=== PATIENT | male | born 1945 | race Caucasian/White ===

== ENCOUNTER 2017-12-17 12:11 | Observation (INO) | payer MEDICARE ==
[2017-12-17] MEDS ORDERED: Nitroglycerin 2% Ointment 1 INCH/1 GM Packet ONE (12:42)
[2017-12-17 12:54] LABS: #Eosinphils 0.1 thou/uL (0.0-0.7); #Lymphocytes 1.6 thou/uL (1.20-3.40); #Monocytes 0.4 thou/uL (0.11-0.59); %Basophils 0.4 % (0.0-1.0); %Eosinophils 1.6 % (0.0-10.0); %Lymphocytes 25.8 % (21.0-51.0); %Monocytes 6.7 % (0.0-10.0); %Neutrophils 65.6 % (42.0-75.0); Hemoglobin 13.1 g/dL (14.0-18.0); Mean Corpuscular HGB CONC 33.6 g/dL (32.0-36.0); Mean Corpuscular Hemoglobin 31.9 pg (27.0-31.0); Mean Corpuscular Volume 94.9 fl (80.0-94.0); Mean Platelet Volume 5.7 fL (7.4-10.4); Platelet Count 199 thou/uL (130-400); RBC Distribution Width 11.4 % (11.5-14.5); Red Blood Cell (RBC) Count 4.12 mill/uL (4.70-6.10); White Blood Cell (WBC) Count 6.1 thou/uL (4.8-10.8)
--- NOTE | 2017-12-17 13:02 | RAD ---
PORTABLE CHEST: History: Dizziness, chest pain. Comparison: 03-14-16 FINDINGS: Lungs are well aerated and clear. No infiltrate. Vascular markings are normal. Heart and mediastinum are unremarkable. IMPRESSION: No acute abnormality. POS: [facility]
[2017-12-17 13:15] LABS: CKMB 0.5 ng/mL (0-6.6); Troponin I Less than 0.010 ng/mL (< 0.028)
[2017-12-17 13:22] LABS: ALT (SGPT) 11 U/L (8-55); AST (SGOT) 13 U/L (5-34); Alkaline Phosphatase 74 U/L (40-150); Anion Gap 13 mmol/L (10-20); BUN (Urea Nitrogen) 23 mg/dL (8.4-25.7); Bilirubin, Total 0.8 mg/dL (0.2-1.2); CK (CPK) 59 U/L (30-200); Calc. Creatinine Clearance 0 mL/min (70-130); Calcium 9.3 mg/dL (7.8-10.44); Carbon Dioxide 34 mmol/L (23-31); Chloride 93 mmol/L (98-107); Estimated GFR-MDRD 59; Globulin 2.6 g/dL (2.4-3.5); Glucose 131 mg/dL (83-110); Lipase 16 U/L (8-78); Potassium 3.4 mmol/L (3.5-5.1); Protein, Total 6.6 g/dL (5.8-8.1); Sodium 137 mmol/L (136-145)
[2017-12-17] MEDS ORDERED: Morphine 4 MG/ML Carpuject ONE (14:27)
[2017-12-17] MEDS ORDERED: Nitroglycerin 0.4 MG TAB (25 Tab Bottle) SL PRN (16:07)
[2017-12-17] MEDS ORDERED: Acetaminophen 650 MG/20.3 ML UDCUP PO PRN (16:07)
[2017-12-17] MEDS ORDERED: Ondansetron ODT 4 MG TAB PO PRN (16:07)
[2017-12-17] MEDS ORDERED: Calcium Carbonate 500 MG ChewTAB PO PRN (16:07)
[2017-12-17] MEDS ORDERED: Guaifenesin DM 100-10/5 ML UDCUP PO PRN (16:07)
[2017-12-17] MEDS ORDERED: Lidocaine 2% Viscous Solution 20 ML, Aluminum & Magnesium Hydroxide 30 ML, Donnatal Eli... SSW SCH (16:15)
[2017-12-17 16:41] VITALS: BMI 21.4
[2017-12-17 17:00] LABS: Troponin I Less than 0.010 ng/mL (< 0.028)
[2017-12-17 19:49] LABS: Troponin I Less than 0.010 ng/mL (< 0.028)
[2017-12-17] MEDS ORDERED: Prevnar 13-Val Conj/PF 0.5 ML SYRINGE IM ONE (21:00)
--- NOTE | 2017-12-18 00:46 | HP-2 ---
DATE OF ADMISSION: 12/17/2017 ADMITTING RESIDENT: Dr. Darnell Myers. ADMITTING ATTENDING: Dr. Jacqueline Reyes PRIMARY CARE PHYSICIAN: [facility] call - none. CODE STATUS: FULL. CHIEF COMPLAINT: Chest pain. HISTORY OF PRESENT ILLNESS: A 72-year-old male with history of coronary artery disease and peptic ul cer disease, who presents with 8 hours of chest pain and dizziness. Chest pain was located in the lo wer sternum and upper abdomen, described as stabbing or similar to being punched in the gut, pain als o radiated up to the chest and into the neck and back of the head associated with some shortness of b reath and feeling like the patient could not catch the breath. Other symptoms have been happening re cently is that the patient said for a long time he feels like he is short-winded more easily with exe rtion. Additionally, the patient had some significant belching that has been malodorous. In the [facility], patient was given aspirin, nitroglycerin, 1 liter of normal saline, and morphine. PAST MEDICAL HISTORY: 1. Coronary artery disease with 100% occluded left anterior descending artery with adequate collater als seen on catheterization in 2006. The patient had an admission last year for chest pain. Dr. Alba gregory was consulted and recommended a stress test at that time and medical management based of the r esults of stress test. 2. Peptic ulcer disease corrected in 2001 with EGD procedure. PAST SURGICAL HISTORY: 1. Catheterization as described above. 2. EGD procedures described above. ALLERGIES: None. MEDICATIONS: None. FAMILY HISTORY: Father had a heart disease with heart attack at a young age. SOCIAL HISTORY: Patient is a 40-mook-vmzy smoker, quitting very recently. It has been 7 days since he has not had a cigarette. Alcohol: The patient is a former heavy alcohol user, but has not had a drink yet in 12 years. Patient denies history or current use of recreational drugs. 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 REVIEW OF SYSTEMS: The following complete review of systems was negative except for what is detailed above. A 12-point review of systems was done and particular negative for bloody stools or dark stoo ls. PHYSICAL EXAMINATION: VITAL SIGNS: Blood pressure 125/64, pulse 68, respiratory 14, T-max 98.3, pulse ox 96% on room air. Current weight 72 kilograms. GENERAL: The patient is alert and oriented x3, in no acute distress. Well-developed and appropriate ly interactive. EYES: PERRLA. EOMI. Conjunctivae within normal limits. ENT: Showed normal nasal mucosa and oropharynx. CARDIOVASCULAR: Regular rate and rhythm without murmurs or rubs. Pulses 2+. RESPIRATORY: Normal effort without retractions, but had mild rhonchorous breath sounds throughout, m oderate air movement. SKIN: Warm and dry with small red lesions near ankles. The patient says this is from his water skii ng. EXTREMITIES: No clubbing, cyanosis or edema. ABDOMEN: Soft but with tenderness to palpation in the epigastric region. No guarding or distension. NEURO: No focal deficits. Sensation within normal limits. MUSCULOSKELETAL: Structure and tone within normal limits. Muscle strength 5/5. PSYCHIATRIC: The patient is appropriate. LABORATORY DATA: White blood cell count 6.1, hemoglobin 13.8, platelets 199. Sodium 136, potassium 3.4, chloride 93, bicarbonate 34, bicarbonate one year ago was 32, BUN 23, creatinine 1.22, glucose 1 31. EKG showed right bundle branch block, some inverted T waves and leads, V2 and V3, this is new fr om EKG one year ago, just had normal sinus rhythm, left axis deviation and nonspecific ST changes. C hest x-ray showed no acute abnormalities. ASSESSMENT AND PLAN: 1. Atypical chest pain. The patient has history of significant coronary artery disease and is klarissa rning for acute coronary syndrome. So we will trend troponins and follow up the Cardiology recommend ations that were made one year ago. The situation seems similar. The patient's history might altern atively be more consistent with peptic ulcer disease or other gastric diseases, so will give a GI unique ktail and Protonix p.o. b.i.d. and see if this relieves patient's symptoms, they may need outpatient GI workup. 2. Possible chronic obstructive pulmonary disease. The patient has a long smoking history and has r honchus breath sounds and patient's exertional shortness of breath and chest tightness seems like it could be consistent with chronic obstructive pulmonary disease. Also, patient has elevated bicarbona te, which could be a chronic respiratory acidosis might also be from chronic obstructive pulmonary di sease, not evident on chest x-ray, but this chest x-ray does not present a good view of the diaphragm s. 3. Elevated bicarbonate was elevated to 32 16 months ago, so this is a chronic problem. I suspect t he patient is retaining some CO2, so will order a VBG to further investigate. 4. Deep venous thrombosis prophylaxis, SCDs. History and physical exam as well as management discussed with Dr. Jacqueline Reyes, who is in agreement .
[2017-12-18 05:01] LABS: pH (venous) 7.44 (7.35-7.45)
[2017-12-18 05:02] LABS: Base Excess 8.7 mEq/L (0 (+/- 2.5)); Calcium, Ionized 1.07 mmol/L (1.16-1.32); Hematocrit-VBG 38.1 % (37-51); Hemoglobin (Hb) 12.4 g/dL (12.6-17.4); Potassium - ABG Lab 2.9 mmol/L (3.70-5.30); Sodium 138.7 mmol/L (133-146)
[2017-12-18 05:49] LABS: #Eosinphils 0.1 thou/uL (0.0-0.7); #Lymphocytes 1.6 thou/uL (1.20-3.40); #Monocytes 0.4 thou/uL (0.11-0.59); #Neutrophils 4.1 thou/uL (1.40-6.50); %Basophils 0.7 % (0.0-1.0); %Eosinophils 1.8 % (0.0-10.0); %Lymphocytes 25.4 % (21.0-51.0); %Monocytes 6.7 % (0.0-10.0); %Neutrophils 65.4 % (42.0-75.0); Hemoglobin 12.3 g/dL (14.0-18.0); Mean Corpuscular HGB CONC 33.1 g/dL (32.0-36.0); Mean Corpuscular Hemoglobin 31.2 pg (27.0-31.0); Mean Corpuscular Volume 94.1 fl (80.0-94.0); Mean Platelet Volume 5.8 fL (7.4-10.4); Platelet Count 187 thou/uL (130-400); RBC Distribution Width 11.4 % (11.5-14.5); Red Blood Cell (RBC) Count 3.96 mill/uL (4.70-6.10); White Blood Cell (WBC) Count 6.3 thou/uL (4.8-10.8)
[2017-12-18 06:15] LABS: ALT (SGPT) 9 U/L (8-55); AST (SGOT) 12 U/L (5-34); Albumin 3.6 g/dL (3.4-4.8); Alkaline Phosphatase 72 U/L (40-150); Anion Gap 14 mmol/L (10-20); BUN (Urea Nitrogen) 17 mg/dL (8.4-25.7); Bilirubin, Total 0.7 mg/dL (0.2-1.2); Calc. Creatinine Clearance 64 mL/min (70-130); Calcium 8.8 mg/dL (7.8-10.44); Carbon Dioxide 31 mmol/L (23-31); Chloride 97 mmol/L (98-107); Estimated GFR-MDRD 67; Globulin 2.5 g/dL (2.4-3.5); Glucose 82 mg/dL (83-110); Potassium 3.1 mmol/L (3.5-5.1); Protein, Total 6.1 g/dL (5.8-8.1); Sodium 139 mmol/L (136-145)
[2017-12-18] MEDS ORDERED: Potassium Chloride 20 MEQ TAB PO SCH (08:30)
[2017-12-18] MEDS ORDERED: Aspirin 81 mg Enteric Coated Tablet PO SCH (09:00)
--- NOTE | 2017-12-18 10:50 | PDOC.EVN ---
Event Note - Event Note Event Note: I personally evaluated the patient and discussed the management with Dr. Myers on 12/17/16. I agree with history, exam, assessment and plan as documented by the resident. Briefly this is a 72 year old gentleman with h/o CAD , HTN, PUD presents with episode of substernal/upper abdominal sharp stabbing pain with associated SOB. Pain radiated to back and neck. Denies any diaphoresis. Improved with rest and NTG given in ER. Also endorses sour taste in mouth, hallitosis, and increased belching. PE: Afebrile BP 125/64 P68 RR14 Lungs CTA b/l CV RRR, no murmur Abd- soft, (+) epigastric tenderness; no HSM Ext: no edema Labs: Troponin I negative x 2 EKG: NSR, RBBB, inverted T waves in V2 and V3 A/P: 1) Chest pain in patient with risk factor/known disease - continue to trend cardiac enzymes - continue ASA - stress test in AM 2) Probable GERD - start PPI
--- NOTE | 2017-12-18 10:56 | PDOC.FM ---
- Subjective Subjective: No acute events overnight, pt reports improvement in his neck pain. Does have some persistent epigastric pain slightly improved with GI cocktail. Pt denies diaphoresis, sob. Dizziness has resolved. Will have stress today. - Objective Vital Signs & Weight: Vital Signs (12 hours) Temp Pulse Resp BP BP Pulse Ox 12/18/17 08:15 74 122/74 12/18/17 07:50 98.3 F 78 16 89/52 L 95 12/18/17 07:49 98.3 F 66 16 12/18/17 03:40 98.3 F 66 16 112/62 96 Weight Weight 72.303 kg I&O: 12/17/17 12/18/17 12/19/17 06:59 06:59 06:59 Intake Total 787 Output Total 0 Balance 787 Result Diagrams: 12/18/17 04:39 12/18/17 04:39 <Kamaljit Antonio - Last Filed: 12/18/17 10:58> - Objective Vital Signs & Weight: Vital Signs (12 hours) Temp Pulse Resp BP BP Pulse Ox 12/18/17 11:48 97.8 F 71 20 132/63 99 12/18/17 08:15 74 122/74 12/18/17 07:50 98.3 F 78 16 89/52 L 95 12/18/17 07:49 98.3 F 66 16 Weight Weight 72.303 kg I&O: 12/17/17 12/18/17 12/19/17 06:59 06:59 06:59 Intake Total 787 Output Total 0 Balance 787 Result Diagrams: 12/18/17 04:39 12/18/17 04:39 <July Brand - Last Filed: 12/18/17 17:23> Phys Exam - Physical Examination Constitutional: NAD HEENT: PERRLA, sclera anicteric Neck: no nodes, no JVD Respiratory: no rales, wheezing present mild expiratory wheezes and rhonchi,throughout Cardiovascular: RRR, no significant murmur, no rub Gastrointestinal: soft, non-tender, no distention Musculoskeletal: no edema Neurological: non-focal, moves all 4 limbs <Kamaljit Antonio - Last Filed: 12/18/17 10:58> Dx/Plan (1) Chest pain Code(s): R07.9 - CHEST PAIN, UNSPECIFIED Status: Acute (2) Tobacco abuse Code(s): Z72.0 - TOBACCO USE Status: Acute (3) CAD (coronary artery disease) Code(s): I25.10 - ATHSCL HEART DISEASE OF [place] CORONARY ARTERY W/O ANG PCTRS Status: Chronic (4) Dyslipidemia Code(s): E78.5 - HYPERLIPIDEMIA, UNSPECIFIED Status: Chronic (5) Hypokalemia Code(s): E87.6 - HYPOKALEMIA Status: Acute - Plan Plan: stress today and echo, results pending continue aspirin/statin pt will ultimately need OP PCP and close f/u for his h/o CAD VSS Possible dc, pending stress results trops negative X3 hypokalemia, replace <Kamaljit Antonio - Last Filed: 12/18/17 10:58> Attending Addendum - Attending Addendum I personally discussed the management with Dr. Antonio on 12/18/17. I agree with the History, Examination, Assessment and Plan documented above with any addition or exceptions noted below. Patient discharged prior to my examination of him. Patient was discharged per Dr. Springer's recommendations, given his history of known 100% LAD occlusion and consistent symptoms. He will follow up with cardiology as an outpatient. <July Brand - Last Filed: 12/18/17 17:23>
[2017-12-18 11:53] VITALS: BP 132/63; TEMP 97.8
--- NOTE | 2017-12-18 12:56 | NM ---
MYOCARDIAL PERFUSION STUDY: DATE: 12/18/17. HISTORY: Chest pain. Coronary artery disease. RADIOPHARMACEUTICALS: 30.2 mCi Technetium 99m sestamibi, IV at stress, and 9 mCi Technetium 99m sestamibi, IV at rest. MEDICATIONS: 0.4 mg of LexiScan, IV. COMPARISON: 03/15/16. FINDINGS: There is a small area of decreased uptake of radiotracer seen within the distal left ventricular wall on the stress acquisition which does demonstrate reversibility on the resting acquisition. Quantita tive analysis also shows a small reversible defect in this region. The rotated planar images do demo nstrate soft tissue attenuation. Gated images show mild hypokinesis involving the inferior and septa l ulloa also seen on the prior exam. There is normal ventricular wall thickening. The calculated le ft ventricular ejection fraction is 56%, and the LVEF on the prior study was 52%. IMPRESSION: 1. Abnormal myocardial perfusion study with small area of mild reversibility in the distal anterior wall suggesting a small area of ischemia. 2. Normal left ventricular ejection fraction of 56%. 3. Mild hypokinesis involving the inferior wall and septum. POS: [facility]
[2017-12-18] MEDS ORDERED: Regadenoson 0.4 MG/5 ML SYRINGE ONE (16:07)
[2017-12-18] MEDS ORDERED: Metoprolol Tartrate 25 MG TAB PO SCH (21:00)
--- NOTE | 2017-12-18 21:06 | CON ---
DATE OF CONSULTATION: 12/18/2017 REASON FOR CONSULTATION: Chest pain. PRIMARY TAPING SUPERVISOR: Jona Headley M.D. HISTORY OF PRESENT ILLNESS: Mr. Rodas is a very pleasant 72-year-old white gentleman who comes to the hospital for chest pain. He has a history of coronary artery disease. He has an occluded LAD which fills from collaterals. This was diagnosed in 2006 from a heart catheterization by Dr. Adames and i t was elected to treat this medically at that time. He actually has minimal followup. He was seen a gain in [address] Headley at which time a stress test was performed that showed normal LV functio n and a very small anterior defect suggestive of small area of ischemia, that was actually equivocal, at that time his EF was 52% and has opted to treat him medically again. This time around, he comes in with symptoms concerning for angina and a nuclear stress test was performed that showed similar fi ndings with an EF of 56% and a small area of mild reversibility in the distal anterior wall, which is suggestive just a small area of ischemia. There is mild hypokinesis in the inferior wall and septum . On my evaluation, he denies any more chest pain, tightness or pressure. He states that is mostly epigastric pain that goes up into his neck. He had 3 completely negative troponins. Her potassium i s mildly decreased at 3.1. He feels much better now and he would like to go home if possible. He chen s not been very well compliant with any of his medications. He has also noted a little bit increased short-windedness recently. PAST MEDICAL HISTORY: 1. Coronary artery disease as above. 2. Peptic ulcer disease diagnosed in 2001. PAST SURGICAL HISTORY: 1. Cardiac catheterization. 2. EGD. OUTPATIENT MEDICATIONS: He has been on no medications. ALLERGIES: No known drug allergies. FAMILY HISTORY: Father with [place] in his 60s. SOCIAL HISTORY: A 96-pfes-dtpj smoker. He quit recently, has been about 7 days since he had his las t cigarette. Former heavy alcohol user, but none for the last 12 years. No drug use. He is current ly a coleman. REVIEW OF SYSTEMS: Twelve point review of systems done and was all negative unless stated in the his tory of present illness. PHYSICAL EXAMINATION: VITAL SIGNS: Temperature 97.8, pulse 71, respiration rate 20, satting 99% on room air, blood pressur e 132/63. GENERAL: Awake, alert, oriented x3, in no distress. HEENT: Normocephalic, atraumatic. NECK: Supple. LUNGS: Clear. CARDIOVASCULAR: S1, S2, no S3, S4, no murmurs. ABDOMEN: Soft with positive bowel sounds. EXTREMITIES: No edema. SKIN: Warm and dry. LABORATORY WORK: Reviewed. Hematology was reviewed. ABG was reviewed and chemistries were reviewed , low potassium, troponins were completely undetectable x3 with a BNP of 37, and albumin of 3.6. Nuclear stress was reviewed, EF was normal at 56% with a small reversible area in the anterior septal wall disease with a very small area of ischemia. This is a low risk finding. ASSESSMENT AND PLAN: Chest pain: Most likely chronic stable angina. Would restart his home regimen , would make sure he is on aspirin, statin drug and also would restart a low dose beta you first as an antianginal. If this does not work, we may start adding nitrates. If he does not tolerate due to blood pressure, we may just switch that to Ranexa. At this time, we will start with beta you s. He should be able to be discharged home. He is not having an acute coronary syndrome. We will h ave him follow up with Dr. Headley in 2-4 weeks and for up titration of his medications. I gave ezra m card and told him to call us to schedule this appointment, also encouraged him to take all the medi cations. He had been off all his medications including an aspirin. I told him he needs to be on asp irin for the rest of his life no matter what unless there is obvious contraindication. He voiced und erstanding of this and he agrees to be started all of his medications. Thank you for letting us to participate in the care of your patient. We will sign off. Please call with any questions.
--- NOTE | 2017-12-21 11:14 | DIS-2 ---
DATE OF ADMISSION: 12/17/2017 DATE OF DISCHARGE: 12/18/2017 LOCATION: [place], [place]. RESIDENT: Dr. Kamaljit Antonio. ADMITTING ATTENDING: Dr. Jacqueline Reyes. DISCHARGE ATTENDING: Dr. July Brand. CONSULTATION: Cardiology, Dr. John Springer. PROCEDURE: Chest x-ray done on 12/17/2017, showed no acute abnormality. PRIMARY DIAGNOSIS: Atypical chest pain. SECONDARY DIAGNOSES: 1. Coronary artery disease. 2. Dyslipidemia. 3. Tobacco abuse. 4. Hypokalemia. DISCHARGE MEDICATIONS: 1. Aspirin 81 mg daily. 2. Atorvastatin 40 mg daily. 3. Lopressor 12.5 mg p.o. b.i.d. 4. Protonix 40 mg b.i.d. DISCONTINUED MEDICATIONS: None. HISTORY OF PRESENT ILLNESS AND HOSPITAL COURSE: The patient is a 72-year-old male with history of co ronary artery disease as well as peptic ulcer disease, who came in with chief complaint of 8 hours of chest pain and dizziness, which was located in the lower sternum and upper abdomen, described as sta bbing and similar to being punched in the gut with radiation to his neck and back of the head. He al so had associated shortness of breath at that time. On admission, the patient's blood pressure was n ormal at 140/66. He was afebrile throughout his entire hospital stay, satting at 94% to 96% on room air. LABORATORY RESULTS: Showed a normal white count, hemoglobin of 12.3 and VBG done showed a pH of 7.44 , pCO2 of 51.2, pO2 of 87.5, and bicarb of 34. CK-MB was drawn and found to be 0.5. Troponin I was negative x2 at less than 0.010 and a brain natri uretic peptide was drawn, which was found to be 37. Overall, the patient was ultimately admitted for chest pain rule out and found did not have acute cor onary syndrome and instructed to continue taking the Protonix and follow up with her primary care lenny davis. The patient left the hospital in stable condition. DISPOSITION: Stable. DISCHARGE INSTRUCTIONS: 1. Location: Home. 2. Diet: Heart healthy. 3. Activity: ad emelia. 4. Followup: Follow up with Dr. Jona Headley in 2-3 weeks following discharge and follow up [facility] within 7-10 days following discharge.
--- NOTE | 2017-12-31 20:43 | STRESS ---
Acquisition Time: 2017-12-18 10:36:27 Total Exercise Time: 00:01:00 Test Indications: CHEST PAIN Medications: Protocol: LEXISCAN Max HR: 083 BPM 55% of Pred: 149 BPM Max BP: 106/054 mmHG Max Work Load: 1.0 METS RESTING ECG: NORMAL SINUS RHYTHM AT 63 BPM WITH A BIFASCICULAR BLOCK SYMPTOMS: SHORTNESS OF BREATH NORMAL BP RESPONSE ECTOPY: NONE ECG STRESS: NO SIGNIFICANTCHANGES INTERPRETATION: NEGATIVE ECG/AWAIT NUCLEAR IMAGES FOR DEFINITIVE DIAGNOSIS Confirmed by TIFFANIE ANDERSON M.D. ([id number]) on 12/31/2017 8:43:09 PM Referred By: MD Ambar PRITCHETT Confirmed By:TIFFANIE ANDERSON M.D.
== END 2017-12-18 14:49 | disposition home or self-care (01) ==
LOC: ERS 12:11 → 2SW 14:12
PROVIDERS: ADMIT Family Medicine; ATTEND Family Medicine
DX: R07.2 Precordial pain (principal); E87.8 Other disorders of electrolyte and fluid balance, not elsewhere classified; I25.10 Atherosclerotic heart disease of native coronary artery without angina pectoris; I10 Essential (primary) hypertension; Z98.890 Other specified postprocedural states; Z87.891 Personal history of nicotine dependence
CPT/HCPCS: 71045; 78452; 80053 ×2; 82550; 82553; 82805; 83690; 83880; 84484 ×2; 85025 ×2; 90670; 93005; 93017; 96361; 96374; 99285; A9500; G0009; G0378; 36415; 90471; J2270; J2785

== ENCOUNTER 2018-04-30 10:04 | Observation (INO) | payer MEDICARE ==
[2018-04-30 10:28] LABS: #Eosinphils 0.1 thou/uL (0.0-0.7); #Lymphocytes 1.4 thou/uL (1.20-3.40); #Monocytes 0.4 thou/uL (0.11-0.59); #Neutrophils 4.7 thou/uL (1.40-6.50); %Basophils 0.5 % (0.0-1.0); %Eosinophils 1.1 % (0.0-10.0); %Lymphocytes 20.7 % (21.0-51.0); %Monocytes 6.6 % (0.0-10.0); %Neutrophils 71.2 % (42.0-75.0); Hemoglobin 14.9 g/dL (14.0-18.0); Mean Corpuscular HGB CONC 34.3 g/dL (32.0-36.0); Mean Corpuscular Hemoglobin 31.9 pg (27.0-31.0); Mean Corpuscular Volume 93.1 fl (80.0-94.0); Mean Platelet Volume 5.7 fL (7.4-10.4); Platelet Count 211 thou/uL (130-400); RBC Distribution Width 11.4 % (11.5-14.5); Red Blood Cell (RBC) Count 4.66 mill/uL (4.70-6.10); White Blood Cell (WBC) Count 6.6 thou/uL (4.8-10.8)
[2018-04-30 10:49] LABS: Albumin 4.3 g/dL (3.4-4.8); Alkaline Phosphatase 112 U/L (40-150); Anion Gap 13 mmol/L (10-20); BUN (Urea Nitrogen) 15 mg/dL (8.4-25.7); Bilirubin, Total 1.1 mg/dL (0.2-1.2); Calc. Creatinine Clearance 0 mL/min (70-130); Calcium 9.7 mg/dL (7.8-10.44); Carbon Dioxide 31 mmol/L (23-31); Chloride 96 mmol/L (98-107); Estimated GFR-MDRD 55; Glucose 120 mg/dL (83-110); Potassium 3.7 mmol/L (3.5-5.1); Protein, Total 7.3 g/dL (5.8-8.1); Sodium 136 mmol/L (136-145)
[2018-04-30 10:50] LABS: ALT (SGPT) 10 U/L (8-55); AST (SGOT) 13 U/L (5-34); CK (CPK) 47 U/L (30-200)
[2018-04-30 10:55] LABS: CKMB 0.4 ng/mL (0-6.6); Troponin I Less than 0.010 ng/mL (< 0.028)
[2018-04-30] MEDS ORDERED: Pantoprazole 40 MG VIAL ONE (11:18)
[2018-04-30] MEDS ORDERED: Nitroglycerin 0.4 MG TAB (25 Tab Bottle) ONE (11:18)
--- NOTE | 2018-04-30 11:24 | RAD ---
PORTABLE CHEST ONE VIEW: 04/30/2018 10:13 a.m. HISTORY: Chest pain. COMPARISON: 12/17/2017 FINDINGS: The heart size is normal. The lungs are well expanded without focal areas of consolidation, pneumoth orax, or pleural effusions. IMPRESSION: No acute process. POS: [facility]
--- NOTE | 2018-04-30 11:50 | CT ---
CTA OF THE CHEST WITH IV CONTRAST AND 3D POSTPROCESSING CTA OF THE ABDOMEN WITH IV CONTRAST AND 3D POSTPROCESSING: Date: 04/30/18 HISTORY: Left-sided chest pain radiating to the back. FINDINGS: The thoracoabdominal aorta demonstrates normal caliber and good contrast enhancement without intimal flap to suggest dissection. No evidence of aneurysmal dilatation is seen. There is good flow in the c eliac axis, renal arteries, SMA, and DENNIS. No pleural or pericardial effusions are seen. No pneumothoraces are identified. There is a 13.0 mm pe ripheral nodule in the posterior aspect of the right lower lobe. No free air or free fluid is seen in the abdomen. No mediastinal, hilar, axillary, or abnormal lymphadenopathy is seen. No calcified gallstones are seen. There is a small amount of air in the intrahepatic ducts, particula rly on the left lobe. Pancreas and adrenal glands are normal. Small low density lesions in the kidney s are likely cysts. There are degenerative changes in the thoracolumbar spine. No hyperenhancing live r lesion is seen. There are calcified granulomas in the spleen. IMPRESSION: 1. No evidence of aortic dissection. 2. Indeterminate 13.0 mm right lung nodule. This should be evaluated with PET scan. CODE T. CODE LN. POS: [facility]
[2018-04-30 13:55] LABS: Troponin I Less than 0.010 ng/mL (< 0.028)
[2018-04-30 14:07] VITALS: BMI 23.1
[2018-04-30] MEDS ORDERED: Ondansetron ODT 4 MG TAB PO PRN (14:26)
[2018-04-30] MEDS ORDERED: Zolpidem Tartrate 5 MG TAB PO PRN (14:26)
[2018-04-30] MEDS ORDERED: Acetaminophen 325 MG TAB PO PRN (14:26)
[2018-04-30] MEDS ORDERED: Ondansetron ODT 4 MG TAB SL PRN (14:30)
[2018-04-30] MEDS ORDERED: Ondansetron HCl/PF 4 MG/2 ML Vial IVP PRN (14:30)
--- NOTE | 2018-04-30 15:13 | HP ---
PRIMARY CARE PROVIDER: None, was in this hospital in November, did not seek followup. He is [facility] admission. 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 Got diz zy, short of breath, had some mild epigastric acid like pain lasted about 30-40 minutes after he took Rolaids. He had some nausea and vomiting last night after eating. He says it happens occasionally that he will eat foods and gets nauseated and vomit. He had no sweats. Positive nausea with shortne ss of breath, lightheadedness, some pain in his neck and his left arm. He feels fine now. PAST MEDICAL AND SURGICAL HISTORY: Hospitalized November this year in this hospital with similar symp toms, had a mildly abnormal stress test at that time and was on no medicines, history of coronary art sandie disease with 100% occluded left anterior descending and cardiac catheterization in 2006, history of peptic ulcer disease with an EGD in 1999 after an episode of upper GI bleeding. ALLERGIES TO MEDICATIONS: None. CURRENT MEDICATIONS: Protonix 40 mg twice a day, metoprolol 12.5 mg twice a day, Lipitor 40 mg a day , aspirin 81 mg a day. FAMILY HISTORY: Father had heart disease with an acute MS at a young age. SOCIAL HISTORY: A 54-zxyj-akxr smoker, former heavy alcohol user, but has not had a drink in 12 year s. CODE STATUS: FULL CODE status. Next of kin for decision making not decided on this exam. REVIEW OF SYSTEMS: General: No headache or fainting. Eyes: No double vision, blurred vision, flas manas lights. ENT: No ear pain or drainage. No nasal bleeding. No trouble swallowing. Cardiac: S ee present illness. No orthopnea or paroxysmal nocturnal dyspnea. Respirations: He has a dry cough this morning. No history of asthma or wheezing. Gastrointestinal: Nausea this morning. Nausea an d vomiting last night. No abdominal pain, no diarrhea, no GI bleeding. Genitourinary: No hematuria , dysuria. Musculoskeletal: No pain or swelling in his arms or legs. Neurologic: No strokes, seiz ures or focal weakness. Psychiatric: No anxiety, depression. Skin: No bruises, bleeding or rash. Heme/Lymph: No tender or swollen lymph nodes in axilla, inguinal or cervical area. PHYSICAL EXAMINATION: GENERAL: He is an alert, pleasant, cooperative male. VITAL SIGNS: Blood pressure 115/57, pulse 48, respirations 16, O2 sat 98, temperature 97.7. HEENT: Pupils equal, round, and reactive to light. Extraocular movements are intact. Sclerae white . Tympanic membranes clear. Nose clear. Mucous membranes are wet. Dental hygiene is good. NECK: No jugular venous distention, adenopathy or thyromegaly. CHEST: Clear to auscultation and percussion with no focal findings. HEART: Regular rate and rhythm. First and second heart sounds are clear. No appreciated murmurs or gallops. ABDOMEN: Soft, bowel sounds are normal. There is no hepatosplenomegaly, no mass, no rebound, no bru its. EXTREMITIES: Reveal no cyanosis, clubbing or edema. PULSES: Carotid, radial, femoral, dorsalis pedis pulses palpable and symmetric. SKIN: Warm and dry without bruises or rash. HEME/LYMPH: No tender or swollen lymph nodes in axilla, inguinal or cervical area. NEUROLOGICAL: Cranial nerves II through XII are intact. Deep tendon reflexes symmetric. IMAGING: CT dissection protocol reveals no acute change. Chest x-ray: No cardiomegaly, CHF or infi ltrate. There is a 1-1.5 cm nodule in the right upper chest seen best on the chest x-ray and CT scan reviewed by me. EKG, sinus bradycardia, complete right bundle branch block, reviewed by me. LABORATORY DATA: Cardiac enzymes normal x2. Comp metabolic profile normal except for blood sugar of 130. D-dimer was elevated at 0.69. CBC is unremarkable. ADMITTING DIAGNOSES: 1. Chest pain. 2. Coronary artery disease. 3. Dyspnea. 4. Dizziness. 5. History of peptic ulcer disease. 6. Gastroesophageal reflux disease. ASSESSMENT: The patient's shortness of breath, chest discomfort, and elevated D-dimer leads to worri es of possible PE despite the normal saturation of O2. A CAT scan with contrast is already been done today. Therefore, a VQ scan will be ordered. PE protocol anticoagulation will be started and follo wed until this is available. Dr. Springer will be consulted. Selected home medicines will be continue d.
--- NOTE | 2018-04-30 16:20 | NM ---
VQ SCAN: HISTORY: Chest pain. TECHNIQUE: A ventilation perfusion scan was performed using 7.5 mCi Xenon-133 by inhalation for the ventilation study followed by the intravenous administration of 6 mCi technetium-99m MAA for the perfusion scan. FINDINGS: Correlation made with the chest radiograph from the same date. Fairly homogeneous tracer distribution is seen in the lungs on both ventilation perfusion images with out mismatched, pleural based, wedge-shaped, segmental/subsegmental perfusion defects. There is trace r retention on the washout phase of the ventilation study consistent with COPD. IMPRESSION: Very low probability for pulmonary embolism. POS: [facility]
--- NOTE | 2018-04-30 16:48 | CON ---
DATE OF CONSULTATION: 04/30/2018 REASON FOR CONSULTATION: Chest pain. HISTORY OF PRESENT ILLNESS: Mr. Rodas is a very pleasant 72-year-old white gentleman who comes to the hospital for pain. He states that he has not had any chest pain, but he started having neck and jeaneth ateral jaw pain, it radiated to the left arm. He stated that he felt like a pressure sensation on th e jaw and he became worried and decided to come in for evaluation. He has a history of coronary dimitry ry disease. He had a heart catheterization back in [address] Adames that showed an occluded LAD wi th collaterals. He was seen again in [address] Headley and a stress that showed a small anterior defect with a normal EF. Repeat stress test recently showed the same findings. He was seen in the office by Palma Mota for Dr. Headley in January of this year. He was kept on the same medications as he was doing just well with no angina. Last admission in November, it was elected to continue to treat him medically. Currently, he would like to have something more definitive and is asking me to see if we can open up his arteries. I told him that this is more of depending on what we find, but karoline arias may need to do a heart catheterization to assess all that. Currently, he is pain free. PAST MEDICAL HISTORY: 1. Coronary artery disease. 2. Peptic ulcer disease. PAST SURGICAL HISTORY: 1. Cardiac catheterization. 2. EGD. OUTPATIENT MEDICATIONS: 1. Protonix 40 mg daily. 2. Metoprolol 12.5 mg b.i.d. 3. Atorvastatin 40 mg at bedtime. 4. Aspirin 81 a day. ALLERGIES: No known drug allergies. SOCIAL HISTORY: A 40-pack year smoking history, quit 7 years ago. Former heavy alcohol use, but non e for 12 years. No drug use. REVIEW OF SYSTEMS: A 12-point review of systems was done and is all negative unless stated in the hi story of present illness. FAMILY HISTORY: Father with ND in his 60s. PHYSICAL EXAMINATION: VITAL SIGNS: Temperature 97.7, pulse 48, respiration rate 16, satting 98% on room air, blood pressur e 115/57. GENERAL: Awake, alert, oriented x3, in no distress. HEENT: Normocephalic, atraumatic. NECK: Supple. LUNGS: Clear. CARDIOVASCULAR: S1, S2, no S3, S4. No murmurs. ABDOMEN: Soft with positive bowel sounds. EXTREMITIES: No edema. SKIN: Warm and dry. LABORATORY WORK: Reviewed. CBC is unremarkable. Coags: D-dimer is little bit high. Troponin is n egative x2. BNP was 49. Metabolic profile is unremarkable except for glucose of 120, chloride of 96 . Normal BUN and creatinine. Normal albumin of 4.3. EKG was reviewed, right bundle-branch block, bifascicular block, no ischemic changes. CT per dissection was reviewed. He had no aortic dissection, but there is an indeterminate 13 mm rig ht lung nodule. ASSESSMENT AND PLAN: Bilateral jaw pain, certainly concerning for angina. He is not having an acute coronary syndrome as he has undetectable troponins; however, he has been in the hospital at least tw ice in the last 6 months for the same reason. We will plan on further risk stratification with a hea rt catheterization. He is eating at the time I am seeing him, so this will have to wait until Thursday . We will have his primary vehicle operator technician, Dr. Headley do this for him. We spoke at length about th e risks and benefits of the procedure, risks included but not limited to stroke, ND, , bleeding and need for blood transfusion, injury to the vessel requiring emergency surgical repair, limb loss, organ loss, contrast reactions like renal dysfunction and allergic reactions. The patient verbalized understanding of this. He agrees to proceed. Further recommendation results of coronary angiogram. We will plan on performing this on Thursday by h is primary vehicle operator technician, Dr. Headley.
[2018-04-30 17:04] LABS: Troponin I Less than 0.010 ng/mL (< 0.028)
[2018-04-30] MEDS ORDERED: ISOVUE-370 76%-LOCM 1 ML ONE (18:22)
--- NOTE | 2018-04-30 18:25 | PDOC.EVN ---
Event Note - Event Note Event Note: scan very low probability PE- DC lovenox
[2018-04-30] MEDS: Atorvastatin Calcium 40 MG TAB PO SCH (19:28)
[2018-04-30] MEDS: Metoprolol Tartrate 25 MG TAB PO SCH (20:49)
[2018-04-30] MEDS ORDERED: Enoxaparin Sodium 80 MG/0.8 ML SYRINGE SC SCH (21:00)
[2018-05-01 04:48] LABS: Anion Gap 9 mmol/L (10-20); BUN (Urea Nitrogen) 13 mg/dL (8.4-25.7); Calc. Creatinine Clearance 63 mL/min (70-130); Carbon Dioxide 31 mmol/L (23-31); Chloride 101 mmol/L (98-107); Estimated GFR-MDRD 61; Glucose 99 mg/dL (83-110); Potassium 3.5 mmol/L (3.5-5.1); Sodium 137 mmol/L (136-145)
[2018-05-01] MEDS: Metoprolol Tartrate 25 MG TAB PO SCH ×2 (08:15→21:18)
[2018-05-01] MEDS: Aspirin 325 MG TAB PO SCH (08:15)
--- NOTE | 2018-05-01 15:13 | PDOC.PN ---
- Subjective Encounter Start Date: 05/01/18 Encounter Start Time: 15:11 Subjective: no chest pain - Objective MAR Reviewed: Yes Vital Signs & Weight: Vital Signs (12 hours) Temp Pulse Resp BP Pulse Ox 05/01/18 11:33 98.1 F 52 L 18 90/53 L 95 05/01/18 07:40 97.8 F 57 L 12 107/56 L 95 Weight Weight 170 lb 3.2 oz I&O: 04/30/18 05/01/18 05/02/18 06:59 06:59 06:59 Intake Total 480 Balance 480 Result Diagrams: 04/30/18 10:20 05/01/18 04:19 Phys Exam - Physical Examination Neck: no JVD Respiratory: clear to auscultation bilateral Cardiovascular: RRR, no significant murmur Gastrointestinal: soft, non-tender Musculoskeletal: no edema Dx/Plan (1) Chest pain Code(s): R07.9 - CHEST PAIN, UNSPECIFIED Status: Acute Qualifiers: Chest pain type: precordial pain Qualified Code(s): R07.2 - Precordial pain (2) Tobacco abuse Code(s): Z72.0 - TOBACCO USE Status: Chronic (3) CAD (coronary artery disease) Code(s): I25.10 - ATHSCL HEART DISEASE OF [place] CORONARY ARTERY W/O ANG PCTRS Status: Chronic Qualifiers: Coronary Disease-Associated Artery/Lesion type: [place] artery [place] vs. transplanted heart: [place] heart Associated angina: angina presence unspecified Qualified Code(s): I25.10 - Atherosclerotic heart disease of [place] coronary artery without angina pectoris (4) Dyslipidemia Code(s): E78.5 - HYPERLIPIDEMIA, UNSPECIFIED Status: Chronic - Plan cont [email or web address] -: cardiac cath 05/03 * .
--- NOTE | 2018-05-01 20:45 | PDOC.CTH ---
Cardiology Progress Note - Subjective He is doing well. No chest pain. - Objective Vital Signs Temp Pulse Resp BP Pulse Ox 05/01/18 18:48 97.8 F 58 L 18 115/62 95 05/01/18 17:34 55 L 05/01/18 15:55 98.2 F 57 L 18 99/53 L 97 05/01/18 11:33 98.1 F 52 L 18 90/53 L 95 Weight 170 lb 3.2 oz 04/30/18 05/01/18 05/02/18 06:59 06:59 06:59 Intake Total 480 250 Balance 480 250 - Physical Examination General/Neuro: alert & oriented x3, NAD Neck: no JVD present Lungs: CTA, unlabored respirations Heart: RRR Abdomen: NT/ND Extremities: other: (no edema.) - Telemetry Telemetry Rhythm: NSR - Labs Result Diagrams: 04/30/18 10:20 05/01/18 04:19 Troponin/CKMB CK-MB (CK-2) 0.4 ng/mL (0-6.6) 04/30/18 10:20 Troponin I Less than 0.010 ng/mL (< 0.028) 04/30/18 16:34 - Assessment/Plan 1. Chest pain, possible angina. 2. CAD. PLAN: - [facility] Thursday.
[2018-05-01] MEDS: Atorvastatin Calcium 40 MG TAB PO SCH (20:49)
[2018-05-02] MEDS: Aspirin 325 MG TAB PO SCH (08:16)
[2018-05-02] MEDS: Metoprolol Tartrate 25 MG TAB PO SCH ×2 (08:16→19:52)
--- NOTE | 2018-05-02 08:47 | PDOC.PN ---
- Subjective Encounter Start Date: 05/02/18 Encounter Start Time: 08:45 Subjective: no chest pain - Objective MAR Reviewed: Yes Vital Signs & Weight: Vital Signs (12 hours) Temp Pulse Resp BP BP Pulse Ox 05/02/18 07:44 98.0 F 62 14 115/59 L 95 05/02/18 03:39 97.5 F L 62 18 106/66 96 Weight Weight 170 lb 3.2 oz I&O: 05/01/18 05/02/18 05/03/18 06:59 06:59 06:59 Intake Total 480 610 Balance 480 610 Result Diagrams: 04/30/18 10:20 05/01/18 04:19 Phys Exam - Physical Examination Neck: no JVD Respiratory: clear to auscultation bilateral Cardiovascular: RRR, no significant murmur Gastrointestinal: soft, positive bowel sounds Musculoskeletal: no edema, pulses present Dx/Plan (1) Chest pain Code(s): R07.9 - CHEST PAIN, UNSPECIFIED Status: Acute Qualifiers: Chest pain type: precordial pain Qualified Code(s): R07.2 - Precordial pain (2) Tobacco abuse Code(s): Z72.0 - TOBACCO USE Status: Chronic (3) CAD (coronary artery disease) Code(s): I25.10 - ATHSCL HEART DISEASE OF [place] CORONARY ARTERY W/O ANG PCTRS Status: Chronic Qualifiers: Coronary Disease-Associated Artery/Lesion type: [place] artery [place] vs. transplanted heart: [place] heart Associated angina: angina presence unspecified Qualified Code(s): I25.10 - Atherosclerotic heart disease of [place] coronary artery without angina pectoris (4) Dyslipidemia Code(s): E78.5 - HYPERLIPIDEMIA, UNSPECIFIED Status: Chronic - Plan cont current meds, NPO at 12 [place] for [facility] tomorrow * .
--- NOTE | 2018-05-02 14:04 | PDOC.CTH ---
Cardiology Progress Note - Subjective No new issues. No chest pain. - Objective Vital Signs Temp Pulse Resp BP BP Pulse Ox 05/02/18 11:15 56 L 16 109/59 L 96 05/02/18 07:44 98.0 F 62 14 115/59 L 95 05/02/18 03:39 97.5 F L 62 18 106/66 96 Weight 170 lb 3.2 oz 05/01/18 05/02/18 05/03/18 06:59 06:59 06:59 Intake Total 480 610 Balance 480 610 - Physical Examination General/Neuro: alert & oriented x3, NAD Neck: no JVD present Lungs: CTA, unlabored respirations Heart: RRR Abdomen: NT/ND Extremities: other: (no edema.) - Telemetry Telemetry Rhythm: NSR - Labs Result Diagrams: 04/30/18 10:20 05/01/18 04:19 Troponin/CKMB CK-MB (CK-2) 0.4 ng/mL (0-6.6) 04/30/18 10:20 Troponin I Less than 0.010 ng/mL (< 0.028) 04/30/18 16:34 - Assessment/Plan 1. Chest pain, possible angina. 2. CAD. PLAN: - [facility] tomorrow.
[2018-05-02] MEDS ORDERED: Communication Order-Pharmacy FS SCH (14:15)
[2018-05-02] MEDS: Atorvastatin Calcium 40 MG TAB PO SCH (19:52)
[2018-05-02] MEDS: Sodium Chloride 0.9% 1,000 ML IV SCH (23:09)
[2018-05-03] MEDS: Aspirin 325 MG TAB PO SCH (04:30)
[2018-05-03] MEDS: Metoprolol Tartrate 25 MG TAB PO SCH (04:30)
[2018-05-03] MEDS ORDERED: Iopamidol 370 76% 100 ML VIAL ONE (07:27)
[2018-05-03] MEDS: Sodium Chloride 0.9% 1,000 ML IV SCH (07:35)
[2018-05-03] MEDS ORDERED: Lidocaine 1% (PF) 30 ML VIAL ONE (08:03)
[2018-05-03] MEDS ORDERED: Midazolam HCl 2 mg/2 ml Vial ONE (08:12)
[2018-05-03] MEDS ORDERED: Fentanyl 100 MCG/2 ML VIAL ONE (08:12)
--- NOTE | 2018-05-03 08:30 | PRG ---
DATE OF SERVICE: 05/03/2018 SUBJECTIVE: Mr. Rodas recently presented with chest pain. He has a history of an occluded LAD. He i s now seen for reassessment of his coronary anatomy. His last angiogram was in 2006. He has now judy led medical therapy. I discussed the procedure in full detail with Mr. Rodas. The risks included, but are not limited to t he following: , stroke, RI, need for emergency surgery, loss of limb, bleeding, and infection, as well as a reaction to the dye causing kidney failure and needing long-term dialysis. I also discu ssed the risks of PCI to include all of the above including coronary dissection and perforation in ad dition to acute stent thrombosis and restenosis. All questions about the procedure were answered. Mignon gautam the above, the patient agreed to proceed with coronary angiography and possible PCI. All questions were answered. I also discussed drug-coated versus nondrug coated stent placement. We will proceed with a drug-coated stent placement if needed. Further recommendations pending the miguelina arias.
[2018-05-03] MEDS ORDERED: Acetaminophen/Codeine 30-300mg Tablet PO PRN ×2 (08:37)
[2018-05-03] MEDS ORDERED: Nitroglycerin 0.4 MG TAB (25 Tab Bottle) SL PRN (08:37)
[2018-05-03] MEDS ORDERED: traMADol HCl 50 MG TAB PO PRN (08:37)
[2018-05-03] MEDS ORDERED: Sodium Chloride 0.9% 1,000 ML IV SCH (08:45)
[2018-05-03] MEDS ORDERED: Sodium Chloride 0.9% 200 ML IV SCH (08:45)
--- NOTE | 2018-05-03 10:02 | PDOC.PN ---
- Subjective Encounter Start Date: 05/03/18 Encounter Start Time: 07:50 -: old records requested/rev Patient seen and examined for chest pain. No new complaints. No overnight events - Objective MAR Reviewed: Yes Vital Signs & Weight: Vital Signs (12 hours) Temp Pulse Resp BP BP Pulse Ox 05/03/18 08:56 98.3 F 54 L 20 126/64 96 05/03/18 08:37 53 L 18 126/64 97 05/03/18 07:32 97.6 F 53 L 16 120/63 94 L 05/03/18 07:25 97.6 F 58 L 18 05/03/18 03:30 97.6 F 58 L 18 109/54 L 95 Weight Weight 170 lb 3.2 oz I&O: 05/02/18 05/03/18 05/04/18 06:59 06:59 06:59 Intake Total 610 669 Balance 610 669 Result Diagrams: 04/30/18 10:20 05/01/18 04:19 EKG Reviewed by me: Yes (nsr) Phys Exam - Physical Examination Constitutional: NAD HEENT: PERRLA, moist MMs, sclera anicteric Neck: no JVD, supple Respiratory: no wheezing, no rales, no rhonchi Cardiovascular: RRR, no significant murmur, no rub Gastrointestinal: soft, non-tender, no distention, positive bowel sounds Musculoskeletal: no edema, pulses present Neurological: non-focal, normal sensation, moves all 4 limbs Lymphatic: no nodes Psychiatric: normal affect, A&O x 3 Skin: no rash, normal turgor Dx/Plan (1) Chest pain Code(s): R07.9 - CHEST PAIN, UNSPECIFIED Status: Acute Qualifiers: Chest pain type: precordial pain Qualified Code(s): R07.2 - Precordial pain (2) Pulmonary nodule Code(s): R91.1 - SOLITARY PULMONARY NODULE Status: Acute (3) CAD (coronary artery disease) Code(s): I25.10 - ATHSCL HEART DISEASE OF [place] CORONARY ARTERY W/O ANG PCTRS Status: Chronic Qualifiers: Coronary Disease-Associated Artery/Lesion type: [place] artery [place] vs. transplanted heart: [place] heart Associated angina: angina presence unspecified Qualified Code(s): I25.10 - Atherosclerotic heart disease of [place] coronary artery without angina pectoris (4) Dyslipidemia Code(s): E78.5 - HYPERLIPIDEMIA, UNSPECIFIED Status: Chronic (5) Tobacco abuse Code(s): Z72.0 - TOBACCO USE Status: Chronic - Plan cont current plan of care * advised to follow up with pulmonary for pulmonary nodule * as per pt cardiac cath is no change from previous * will consider discharge later today * medication reviewed as below * symptomatic treatment. Review of Systems - Review of Systems ENT: negative: Ear Pain, Ear Discharge, Nose Pain, Nose Discharge, Nose Congestion, Mouth Pain, Mouth Swelling, Throat Pain, Throat Swelling, Other Respiratory: negative: Cough, Dry, Shortness of Breath, Hemoptysis, SOB with Excertion, Pleuritic Pain, Sputum, Wheezing Cardiovascular: negative: chest pain, palpitations, orthopnea, paroxysmal nocturnal dyspnea, edema, light headedness, other Gastrointestinal: negative: Nausea, Vomiting, Abdominal Pain, Diarrhea, Constipation, Melena, Hematochezia, Other Genitourinary: negative: Dysuria, Frequency, Incontinence, Hematuria, Retention , Other Musculoskeletal: negative: Neck Pain, Shoulder Pain, Arm Pain, Back Pain, Hand Pain, Leg Pain, Foot Pain, Other Skin: negative: Rash, Lesions, Dominic, Bruising, Other - Medications/Allergies Allergies/Adverse Reactions: Allergies Allergy/AdvReac Type Severity Reaction Status Date / Time No Known Allergies Allergy Verified 03/14/16 12:44 Medications: Current Medications Acetaminophen (Tylenol) 650 mg PO Q4H PRN PRN Reason: Headache/Fever or Pain Acetaminophen/Codeine Phosphate (Tylenol #3) 1 tab PO Q4H PRN PRN Reason: Mild Pain (1-3) Acetaminophen/Codeine Phosphate (Tylenol #3) 2 tab PO Q4H PRN PRN Reason: Moderate Pain (4-6) Aspirin (Aspirin) 325 mg PO DAILY [facility] Last Admin: 05/03/18 04:30 Dose: 325 mg Atorvastatin Calcium (Lipitor) 40 mg PO HS [facility] Last Admin: 05/02/18 19:52 Dose: 40 mg Sodium Chloride (Normal Saline 0.9%) 1,000 mls @ 125 mls/hr IV .Q8H [facility] Stop: 05/03/18 12:46 Last Admin: 05/03/18 09:27 Dose: Not Given Sodium Chloride (Normal Saline 0.9%) 200 mls @ 0 mls/hr IV ONE [facility] PRN Reason: As Directed Stop: 05/03/18 11:00 Isosorbide Mononitrate (Imdur Er) 30 mg PO DAILY [facility] Metoprolol Tartrate (Lopressor) 12.5 mg PO BID [facility] Last Admin: 05/03/18 04:30 Dose: 12.5 mg Miscellaneous Information (Communication Order-Pharmacy) 0 each FS ONE [facility] Stop: 05/03/18 12:00 Nitroglycerin (Nitrostat) 0.4 mg SL Q5MIN PRN PRN Reason: Chest Pain Ondansetron HCl (Zofran Odt) 4 mg PO Q6H PRN PRN Reason: Nausea/Vomiting Pantoprazole Sodium (Protonix) 40 mg PO BID [facility] Last Admin: 05/03/18 04:30 Dose: 40 mg Sodium Chloride (Flush - Normal Saline) 10 ml IVF Q12HR [facility] Sodium Chloride (Flush - Normal Saline) 10 ml IVF PRN PRN PRN Reason: Saline Flush Tramadol HCl (Ultram) 50 mg PO Q6H PRN PRN Reason: Moderate Pain (4-6) Zolpidem Tartrate (Ambien) 5 mg PO HSPRN PRN PRN Reason: Insomnia
[2018-05-03 11:28] VITALS: TEMP 97.5
--- NOTE | 2018-05-03 11:44 | DIS ---
PRIMARY CARE PHYSICIAN: [facility] call admission. DATE OF ADMISSION: 04/30/2018 DATE OF DISCHARGE 05/03/2018 DISCHARGE DISPOSITION: Home. PRIMARY DISCHARGE DIAGNOSES: 1. Chest pain, ruled out acute coronary syndrome. 2. Pulmonary nodule. SECONDARY DISCHARGE DIAGNOSES: Coronary artery disease, dyslipidemia, tobacco abuse disorder, hypert ension. PRIMARY PROCEDURE/OPERATION: Cardiac catheterization which was unremarkable. RADIOLOGICAL INVESTIGATION: Chest x-ray normal. CT dissection, negative for any dissection. Ventil ation perfusion scan showed low probability of PE. SIGNIFICANT LABORATORY DATA: WBC 6.6, hemoglobin 14.9, platelet 211, D-dimer 0.69. Sodium 137, crea tinine 1.17. Cardiac enzymes negative x3. LFT normal. BNP 49.6. DISCHARGE MEDICATIONS: Aspirin 81 mg p.o. daily, Lipitor 40 mg p.o. at bedtime, metoprolol 12.5 mg p .o. b.i.d., Protonix 40 mg p.o. daily. CONTRAINDICATIONS: None. CODE STATUS: FULL CODE. INPATIENT CONSULTANTS: Dr. Springer was following while in hospital. Dr. Headley did cardiac cathet erization. TEST RESULTS PENDING ON DISCHARGE: None. ALLERGIES: No known drug allergy. DISCHARGE PLAN: Post hospital, the patient will follow up with primary care physician. HOSPITAL COURSE: The patient is a 72-year-old male who was admitted by Dr. Hurt for chest pain. Pl ease see his H&P for further detail. His chest pain description was atypical. Cardiology thought th at he might have coronary artery disease. In the emergency room, he had elevated D-dimer and that is why CT dissection was done which was negative for dissection and ventilation perfusion scan was also negative for PE. Chest x-ray was normal. His serial cardiac enzyme are negative. This patient und erwent cardiac catheterization and that was also unchanged from previous. His telemetry remained unr emarkable. At this point, the patient is chest pain free. He is stable for discharge. I have seen this patient at bedside and examined him. If Cardiology okay, then we will consider disc harging him home later on today.
[2018-05-03 13:50] VITALS: BP 104/62
== END 2018-05-03 14:48 | disposition home or self-care (01) ==
LOC: ERS 10:04 → 2SW 12:20
PROVIDERS: ADMIT Internal Medicine; ATTEND Internal Medicine
PROC: 4A023N7 Measurement of Cardiac Sampling and Pressure, Left Heart, Percutaneous Approach (ICD-10-PCS; principal; 2018-05-03)
PROC: B2111ZZ Fluoroscopy of Multiple Coronary Arteries using Low Osmolar Contrast (ICD-10-PCS; 2018-05-03)
DX: R07.89 Other chest pain (principal); I25.10 Atherosclerotic heart disease of native coronary artery without angina pectoris; R91.1 Solitary pulmonary nodule; E78.5 Hyperlipidemia, unspecified; I10 Essential (primary) hypertension; K21.9 Gastro-esophageal reflux disease without esophagitis; Z87.891 Personal history of nicotine dependence; Z79.82 Long term (current) use of aspirin; Z79.899 Other long term (current) drug therapy; Z98.890 Other specified postprocedural states
CPT/HCPCS: 71045; 71275; 76942; 78582; 80048; 80053; 82550; 82553; 83880; 84484 ×2; 85025; 85379; 93005; 93458; 96374; 99285; A9540; A9558; C1769; G0378 ×2; 36415; C9113; J1644; J2001; J2250; J3010

== ENCOUNTER 2019-01-10 14:38 | Inpatient (IN) | payer MEDICARE ==
[2019-01-10 15:29] LABS: #Basophils 0.1 thou/uL (0.0-0.2); #Lymphocytes 1.4 thou/uL (1.20-3.40); #Monocytes 0.4 thou/uL (0.11-0.59); #Neutrophils 4.4 thou/uL (1.40-6.50); %Eosinophils 0.6 % (0.0-10.0); %Lymphocytes 22.4 % (21.0-51.0); %Monocytes 5.9 % (0.0-10.0); %Neutrophils 70.1 % (42.0-75.0); Hemoglobin 12.6 g/dL (14.0-18.0); Mean Corpuscular HGB CONC 33.1 g/dL (32.0-36.0); Mean Corpuscular Hemoglobin 30.9 pg (27.0-31.0); Mean Corpuscular Volume 93.4 fL (78.0-98.0); Mean Platelet Volume 5.9 fL (7.4-10.4); Platelet Count 183 thou/uL (130-400); RBC Distribution Width 11.4 % (11.5-14.5); Red Blood Cell (RBC) Count 4.09 mill/uL (4.70-6.10); White Blood Cell (WBC) Count 6.3 thou/uL (4.8-10.8)
[2019-01-10 15:40] LABS: CK (CPK) 45 U/L (30-200); CRP (Inflammatory) Less than 0.50 mg/dL (= or < 0.5)
[2019-01-10 15:42] LABS: ALT (SGPT) 10 U/L (8-55); AST (SGOT) 12 U/L (5-34); Albumin 3.9 g/dL (3.4-4.8); Alkaline Phosphatase 78 U/L (40-150); Anion Gap 13 mmol/L (10-20); BUN (Urea Nitrogen) 18 mg/dL (8.4-25.7); Bilirubin, Total 0.7 mg/dL (0.2-1.2); Calc. Creatinine Clearance 0 mL/min (70-130); Calcium 9.3 mg/dL (7.8-10.44); Carbon Dioxide 25 mmol/L (23-31); Chloride 106 mmol/L (98-107); Estimated GFR-MDRD 56; Globulin 2.6 g/dL (2.4-3.5); Glucose 96 mg/dL (83-110); Potassium 4.7 mmol/L (3.5-5.1); Protein, Total 6.5 g/dL (5.8-8.1); Sodium 139 mmol/L (136-145)
[2019-01-10 15:52] LABS: Bilirubin Negative (Negative); Blood, Urine Trace (Negative); Glucose, Urine (Dipstick) Negative (Negative); Leukocyte Negative (Negative); Nitrite Negative (Negative); Protein, Urine (Dipstick) Negative (Neg-Trace); Urobilinogen 0.2 mg/dL (0.2-1.0)
[2019-01-10 15:53] LABS: Clarity Hazy (Clear); Specific Gravity, Urine 1.005 (1.005-1.030)
[2019-01-10 15:55] LABS: Bacteria/HPF Rare-Few HPF (None Seen); RBC/HPF 0-3 HPF (0-3); WBC/HPF None Seen HPF (0-3)
--- NOTE | 2019-01-10 16:20 | CT ---
CT HEAD NONCONTRAST: INDICATION: Neck pain, right lower extremity clonus. FINDINGS: There is multifocal hypoattenuation of the bilateral cerebral hemispheres favoring gliosis. No intra cranial hemorrhage, mass effect, midline shift, or ventriculomegaly. IMPRESSION: 1. Multifocal age-indeterminate bilateral cerebral hemispheric hypodensities favoring microvascular ischemic disease. As necessary, acuity of findings may be further discerned with MRI of brain exam. 2. No intracranial hemorrhage, mass effect, or midline shift. POS: [facility]
--- NOTE | 2019-01-10 16:20 | RAD ---
CHEST ONE VIEW: Comparison: 04-30-18 History: Altered mental status. Comparison: None. FINDINGS: Atherosclerosis of the aortic knob. Normal cardiac silhouette. The pulmonary vessels and hilum are no rmal. Osteophrenic angles are clear. No mass. No consolidation. No pneumothorax or osseous abnormalit ies. IMPRESSION: No acute cardiopulmonary process. POS: [facility]
--- NOTE | 2019-01-10 16:22 | CT ---
CT CERVICAL SPINE: HISTORY: Neck pain. Right lower extremity clonus. TECHNIQUE: Axial images are obtained with coronal and sagittal reconstructions. FINDINGS: CT images demonstrate no evidence of acute cervical spine fractures. Disk space height loss with ant erior and posterior osteophytes seen at C3-C4. There is mild retrolisthesis of C3 on C4. There is s evere C3-C4 central spinal stenosis, due to the retrolisthesis as well as the posterior osteophytes a t C3-C4. Correlation with MRI may be of use. Anterior osteophytes also seen at C5-C6. IMPRESSION: Retrolisthesis of C3 on C4 with severe C3-C4 central stenosis. Correlation with MRI may be of use. POS: [facility]
[2019-01-10] MEDS ORDERED: Morphine 4 MG/ML Carpuject ONE (16:52)
[2019-01-10] MEDS ORDERED: Aspirin Chewable 81 MG TAB ONE (16:52)
--- NOTE | 2019-01-10 18:59 | MRI ---
MRI CERVICAL SPINE WITHOUT CONTRAST: HISTORY: Neck pain. Bilateral lower extremity clonus. Abnormal CT examination, which showed marked stenosis at the C3-C4 level. COMPARISON: CT examination done earlier today. FINDINGS: The vertebral bodies appear normal in height. There is severe disk narrowing at C3-C4 level. There is some questionable minimal increased signal change within the cord at this level, although difficul t to assess due to less than optimal signal to noise. C2-C3: Some borderline left-sided foraminal narrowing is seen at this level. No central canal steno sis. C3-C4: There is broad-based posterior osteophytic bar at this level with moderately severe canal halle nosis and some bilateral foraminal narrowing, greater on the left. C4-C5: No significant canal or foraminal stenosis appreciated at this level. There are some posteri or osteophytic changes. C5-C6: The canal shows a mild degree of canal stenosis. No significant foraminal narrowing. C6-C7: No significant canal or foraminal narrowing. C7-T1: Unremarkable. IMPRESSION: Broad-based posterior osteophytic bar with a moderately severe degree of canal stenosis at the C3-C4 level. Other findings as noted above. POS: [facility]
[2019-01-10] MEDS ORDERED: Acetaminophen 325 MG TAB ONE (20:02)
[2019-01-10] MEDS ORDERED: Morphine 4 MG/ML VIAL SLOW IVP PRN (20:41)
[2019-01-10] MEDS ORDERED: Ondansetron ODT 4 MG TAB SL PRN (20:42)
[2019-01-10] MEDS ORDERED: Acetaminophen 325 MG TAB PO PRN (20:42)
[2019-01-10] MEDS ORDERED: Ondansetron PF 4 MG/2 ML Vial IVP PRN (20:42)
[2019-01-10 23:20] VITALS: BMI 20.5
--- NOTE | 2019-01-10 23:52 | PDOC.FPRHP ---
- History of Present Illness Chief Complaint: Shakes History of Present Illness: Mr. Rodas [place] [facility] [place] and [place]aresthesias He reports that earlier today at work he started to feel chills and in general not well. He had a friend take him to the ED where he had shaky type movements and paresthesias. He denies any LOC or fall at this time, no focal weakness or deficits were noted there. He denies any CP, SOB, palpitations, visual disturbances, or abdominal upset. He has never had an episode like this before, denies trauma ED Course: CT brain/spine, MRI cspine, CBC, CMP, ESR, BCx morphine, tylenol, asa - Allergies/Adverse Reactions Allergies Allergy/AdvReac Type Severity Reaction Status Date / Time No Known Allergies Allergy Verified 03/14/16 12:44 - Home Medications Medication Instructions Recorded Confirmed Type Aspirin [Ecotrin Low Strength] 81 mg PO DAILY #30 tab 12/18/17 01/10/19 Rx Pantoprazole [Protonix] 40 mg PO BID #60 tab 12/18/17 01/10/19 Rx Atorvastatin Calcium 40 mg PO HS 04/30/18 01/10/19 History Isosorbide Mononitrate [Imdur ER] 30 mg PO DAILY #30 tab 05/03/18 01/10/19 Rx Metoprolol Tartrate [Lopressor] 25 mg PO BID 01/10/19 01/10/19 History - History PMHx: HTN, HLD, CAD, GERD with ulcer perforation PSHx: Cath 2016 FHx: OK, Cancer Social: 1/2 ppd, denies alcohol or drugs - Review of Systems General: reports: fever/chills. denies: weight/appetite/sleep changes Eyes: denies: vision changes Respiratory: denies: cough, shortness of breath Cardiovascular: denies: chest pain, palpitation Gastrointestinal: reports: diarrhea. denies: nausea, vomiting Genitourinary: denies: incontinence, dysuria Skin: denies: rashes, lesions Musculoskeletal: denies: pain, tenderness Neurological: reports: numbness. denies: syncope, seizure, weakness - Vital signs BP: 109/64 HR: 53 RR: 18 Tmax: 97.6 Pox: 100% on RA Wt: 70kg - Physical Exam Constitutional: NAD, awake, alert and oriented HEENT: normocephalic and atraumatic, grossly normal vision, grossly normal hearing Neck: supple, trachea midline Chest: no-tender to palpation, no lesions Heart: RRR, normal S1/S2, no murmurs/rubs/gallops Lungs: CTAB, no respiratory distress Abdomen: soft, non-tender Musculoskeletal: normal structure, normal tone, ROM grossly normal Neurological: no focal deficit, CN II-XII intact, normal sensation Skin: no rash/lesions, good turgor Heme/Lymphatic: no unusual bruising or bleeding Psychiatric: normal mood and affect FMR H&P: Results - Labs Result Diagrams: 01/10/19 15:15 01/10/19 15:15 Lab results: WBC 6.3 thou/uL (4.8-10.8) 01/10/19 15:15 Hgb 12.6 g/dL (14.0-18.0) L 01/10/19 15:15 Hct 38.2 % (42.0-52.0) L 01/10/19 15:15 MCV 93.4 fL (78.0-98.0) 01/10/19 15:15 Plt Count 183 thou/uL (130-400) 01/10/19 15:15 Neutrophils % 70.1 % (42.0-75.0) 01/10/19 15:15 ESR Westergren 30 mm/hr (0-10) H 01/10/19 15:15 Sodium 139 mmol/L (136-145) 01/10/19 15:15 Potassium 4.7 mmol/L (3.5-5.1) 01/10/19 15:15 Chloride 106 mmol/L (98-107) 01/10/19 15:15 Carbon Dioxide 25 mmol/L (23-31) 01/10/19 15:15 BUN 18 mg/dL (8.4-25.7) 01/10/19 15:15 Creatinine 1.27 mg/dL (0.7-1.3) 01/10/19 15:15 Glucose 96 mg/dL (83-110) 01/10/19 15:15 Lactic Acid 1.1 mmol/L (0.5-2.2) 01/10/19 15:15 Calcium 9.3 mg/dL (7.8-10.44) 01/10/19 15:15 Total Bilirubin 0.7 mg/dL (0.2-1.2) 01/10/19 15:15 AST 12 U/L (5-34) 01/10/19 15:15 ALT 10 U/L (8-55) 01/10/19 15:15 Alkaline Phosphatase 78 U/L (40-150) 01/10/19 15:15 Creatine Kinase 45 U/L (30-200) 01/10/19 15:15 C-Reactive Protein Less than 0.50 mg/dL (= or < 0.5) 01/10/19 15:15 Serum Total Protein 6.5 g/dL (5.8-8.1) 01/10/19 15:15 Albumin 3.9 g/dL (3.4-4.8) 01/10/19 15:15 Urine Ketones Negative mg/dL (Negative) 01/10/19 15:25 Urine Blood Trace (Negative) H 01/10/19 15:25 Urine Nitrite Negative (Negative) 01/10/19 15:25 Ur Leukocyte Esterase Negative (Negative) 01/10/19 15:25 Urine RBC 0-3 HPF (0-3) 01/10/19 15:25 Urine WBC None Seen HPF (0-3) 01/10/19 15:25 Ur Squamous Epith Cells 4-6 HPF (0-3) H 01/10/19 15:25 Urine Bacteria Rare-Few HPF (None Seen) 01/10/19 15:25 FMR H&P: A/P - Problem List (1) HTN (hypertension) Current Visit: Yes Status: Acute Code(s): I10 - ESSENTIAL (PRIMARY) HYPERTENSION (2) Arm paresthesia, left Current Visit: Yes Status: Acute Code(s): R20.2 - PARESTHESIA OF SKIN (3) Clonus Current Visit: Yes Status: Acute Code(s): R25.8 - OTHER ABNORMAL INVOLUNTARY MOVEMENTS (4) CAD (coronary artery disease) Current Visit: No Status: Chronic Code(s): I25.10 - ATHSCL HEART DISEASE OF [place] CORONARY ARTERY W/O ANG PCTRS Qualifiers: Coronary Disease-Associated Artery/Lesion type: [place] artery [place] vs. transplanted heart: [place] heart Associated angina: angina presence unspecified Qualified Code(s): I25.10 - Atherosclerotic heart disease of [place] coronary artery without angina pectoris (5) Dyslipidemia Current Visit: No Status: Chronic Code(s): E78.5 - HYPERLIPIDEMIA, UNSPECIFIED - Plan Arm parathesias with reported clonus - Cspine abnormalities noted on imaging, benign PE, ESR elevated - no WBC elevation, VSS, no focal deficits - neurosurgery contacted in outside ER, consult pending, contact in AM - monitor on stroke HTN - aware, continue home meds HLD - aware, continue home meds GERD - aware, continue home meds - avoid NSAIDS CAD - aware, no active chest pain Code: full ppx: lovenox Dispo: monitor on stroke, neurosurgery recs in AM FMR H&P: Upper Level - Pertinent history 73M transferred from [facility] for clonus and paresthesias of LUE. At work he began feeling bad had no particular symptoms. While in the ED he reports having repetitive shaking movements of BLE. Patient reports a funny feeling originating in his left hand that radiated to his elbow along with bilateral shoulder and neck pain. He denies any pain or muscle weakness associated with the tingling/numbness. He has never experienced this before. No pain with ambulation. He denies any swelling to lower extremities and denies any SOB or respiratory sxs. At no point has the patient lost consciousness or experienced any loss of motor function. No slurring of speech of FND. ED: tylenol, morphine, aspirin - Pertinent findings CT head: evidence of microvascular ischemic disease; no acute pathology CT c-spine: retrolisthesis of C3 on C4 with severe C3-4 cental canal stenosis CXR: negative MRI c-spine: moderately severe canal stenosis ESR: 30 CK: 45 UA: wnl Gen: A&Ox3; in no acute distress CV: RRR, no murmurs Pulm: CTA-B Neuro: no clonus; CN II-XII intact; normal sensation of BLE and BUE; 2+ patellar reflexes - Plan Date/Time: 01/10/19 2129 I, Jacques Louis, have evaluated this patient and agree with findings/plan as outlined by product development intern resident. Pertinent changes/additions are listed here. BLE clonus and paresthesias: transferred for possible cord impingement after speaking with neurosurgery PA. No FND and normal neuro examination here, low suspicion for TIA/CVA. He is not toxic with normal VS. This does not appear to be an infectious process. Will consult NS in AM for further work up. Sxs not fully explained by MRI findings. Addendum - Attending - Attending Attestation Date/Time: 01/11/19 3355 I personally evaluated the patient and discussed the management with the team. I agree with and repeated the History, Examination, Assessment and Plan documented above with any addition or exceptions noted below. Patient with no symptoms currently. On exam CN II-XII intact and symmetric. Motor 5/5 in UE/LE extensors and flexors. DTRs 2/4, no clonus, neg cerebellar exam. Await NSx recs. Likely discharge.
--- NOTE | 2019-01-11 06:29 | PDOC.FM ---
- Subjective Subjective: Complains of cramping in lower extremities upon admission and tingling in left arm. However this morning all sx resolved. - Objective MAR Reviewed: Yes Vital Signs & Weight: Vital Signs (12 hours) Temp Pulse Resp BP Pulse Ox 01/11/19 04:00 98.6 F 68 16 104/65 95 01/11/19 00:00 97.6 F 64 16 87/52 L 98 01/10/19 23:56 100 01/10/19 20:35 97.6 F 53 L 18 109/64 100 Weight Weight 70.76 kg I&O: 01/09/19 01/10/19 01/11/19 06:59 06:59 06:59 Intake Total 240 Balance 240 Result Diagrams: 01/10/19 15:15 01/10/19 15:15 Phys Exam - Physical Examination Constitutional: NAD HEENT: PERRLA, moist MMs Respiratory: no wheezing, no rales, clear to auscultation bilateral Cardiovascular: RRR, no significant murmur Gastrointestinal: soft, non-tender, no distention Musculoskeletal: no edema, pulses present Neurological: non-focal, normal sensation, moves all 4 limbs Psychiatric: normal affect, A&O x 3 Skin: no rash, cap refill <2 seconds Dx/Plan (1) Arm paresthesia, left Code(s): R20.2 - PARESTHESIA OF SKIN Status: Acute (2) HTN (hypertension) Code(s): I10 - ESSENTIAL (PRIMARY) HYPERTENSION Status: Acute (3) CAD (coronary artery disease) Code(s): I25.10 - ATHSCL HEART DISEASE OF [place] CORONARY ARTERY W/O ANG PCTRS Status: Chronic Qualifiers: Coronary Disease-Associated Artery/Lesion type: [place] artery [place] vs. transplanted heart: [place] heart Associated angina: angina presence unspecified Qualified Code(s): I25.10 - Atherosclerotic heart disease of [place] coronary artery without angina pectoris (4) Dyslipidemia Code(s): E78.5 - HYPERLIPIDEMIA, UNSPECIFIED Status: Chronic (5) Tobacco abuse Code(s): Z72.0 - TOBACCO USE Status: Chronic (6) Leg cramping Code(s): R25.2 - CRAMP AND SPASM Status: Acute - Plan Plan: Arm parathesias with reported clonus - no focal deficits this morning - neurosurgery consulted and cleared for discharge with close follow-up to evaluate for possible elective surgery HTN - aware, continue home meds HLD - aware, continue home meds GERD - aware, continue home meds - avoid NSAIDS CAD - aware, no active chest pain Code: full ppx: lovenox Addendum - Attending - Attending Attestation Date/Time: 01/18/19 0856 I personally evaluated the patient and discussed the management with Dr. Boyd. Seen on day of note. I agree with and repeated the History, Examination, Assessment and Plan documented above with any addition or exceptions noted below.
--- NOTE | 2019-01-11 06:31 | CON ---
DATE OF CONSULTATION: HISTORY OF PRESENT ILLNESS: The patient is a 73-year-old male with a past medical history of coronary artery disease, hypertension, hyperlipidemia, gastric ulcer, who presented to the emergency department yesterday afternoon after development of neck pain and dysesthesias in bilateral upper and lower extremities. The patient reports that he initially developed some discomfort in the posterior aspect of his neck. This radiated into his left shoulder and to his left proximal arm. This progressed with symptoms of numbness and tingling throughout both upper and lower extremities. He presented to the emergency department for further evaluation of the symptoms. At that time, ER physician was concerned for also physical exam finding clonus and therefore, the patient was evaluated with CT of the cervical spine. CT of the cervical spine was notable for degenerative changes particularly at C3-C4 with retrolisthesis at this level concerning for cord impingement. MRI was done as well, which confirmed cervical stenosis at this level. I am evaluating the patient at the bedside. He reports his symptoms have now resolved except for some mild neck discomfort. He denies any numbness, tingling, weakness of the extremities. Denies any recent bowel or bladder issues. He has never had any similar episode and denies any prior history of spinal surgery. He denies any injury or trauma. PAST MEDICAL HISTORY: Hypertension, hyperlipidemia, coronary artery disease, history of gastric ulcers. PAST SURGICAL HISTORY: Cardiac cath in 2017. FAMILY HISTORY: For coronary artery disease and cancer. SOCIAL HISTORY: He smokes one-half pack per day. Does not drink or use any drugs. He lives at home alone. REVIEW OF SYSTEMS: Per HPI. PHYSICAL EXAMINATION: CONSTITUTIONAL: Awake, alert, in no acute distress. HEENT: Head, normocephalic and atraumatic. Eyes, PERRLA. Extraocular movements intact. ENT, oral mucosa is pink and intact. Voice, the patient has normal voice. NECK: Nontender to palpation. Free active range of motion. No meningismus or nuchal rigidity. No reproducible Lhermitte's with flexion or extension. CARDIOVASCULAR: Regular rate and rhythm. RESPIRATORY: He is breathing comfortably with symmetric chest expansion. MUSCULOSKELETAL: He has free active range of motion of all extremities. No focal motor weakness. No reflex asymmetry. Negative Barboza's. Negative clonus. NEURO: A and O x4. No focal neurologic deficits are appreciated. ASSESSMENT: Cervical stenosis. PLAN: The patient does appear to have some degree of retrolisthesis associated with C3-C4 with stenosis at this level. Currently, he is asymptomatic of any pain, dysesthesias, or weakness. He is bit of a difficult historian and his initial complaints found concerning for possible Lhermitte's; however, this is not reproducible on my exam. We will evaluate further with flexion-extension x-rays of the cervical spine. discussed with Dr. Diehl and have him reviewed as well. Job ID: [id number]
[2019-01-11] MEDS ORDERED: Enoxaparin Sodium 40 MG/0.4 ML SYRINGE SC SCH (09:00)
--- NOTE | 2019-01-11 10:33 | RAD ---
FIVE VIEWS OF THE CERVICAL SPINE: Comparison: None. History: C3-4 retrolisthesis. Evaluate for stability. FINDINGS: AP, lateral, open mouth odontoid, and flexion/extension views of the cervical spine were performed. T he C3 vertebral body is minimally retro displaced compared to C2 and C4. There are endplate degenerat trixie changes and joint space narrowing of the intervertebral discs surrounding this disc and this seco ndary to degenerative change. Alignment is unchanged with flexion and extension. No prevertebral soft tissue swelling is seen. IMPRESSION: Degenerative changes of the upper cervical spine with unchanged alignment with bending. POS: [facility]
[2019-01-11 15:53] VITALS: BP 111/65; TEMP 98.2
== END 2019-01-11 16:14 | disposition home or self-care (01) | DRG 552 ==
LOC: SCSER 14:38 → 2SE 19:47
PROVIDERS: ADMIT Family Medicine; ATTEND Family Medicine
DX: M48.02 Spinal stenosis, cervical region (principal); I10 Essential (primary) hypertension; E78.5 Hyperlipidemia, unspecified; I25.10 Atherosclerotic heart disease of native coronary artery without angina pectoris; K21.9 Gastro-esophageal reflux disease without esophagitis; F17.210 Nicotine dependence, cigarettes, uncomplicated; Z79.82 Long term (current) use of aspirin; Z79.899 Other long term (current) drug therapy; Z87.11 Personal history of peptic ulcer disease; Z82.49 Family history of ischemic heart disease and other diseases of the circulatory system
CPT/HCPCS: 70450; 71045; 72040; 72125; 72141; 80053; 81003; 81015; 82550; 83605; 85025; 85652; 86140; 87040; 87086; 90471; 90662; 96374; G0008; J1650; J2270

== ENCOUNTER 2019-07-29 11:22 | Observation (INO) | payer MEDICARE ==
[2019-07-29 11:56] LABS: #Lymphocytes 1.2 thou/uL (1.20-3.40); #Monocytes 0.4 thou/uL (0.11-0.59); #Neutrophils 4.8 thou/uL (1.40-6.50); %Basophils 0.3 % (0.0-1.0); %Eosinophils 0.3 % (0.0-10.0); %Monocytes 6.2 % (0.0-10.0); %Neutrophils 75.2 % (42.0-75.0); Mean Corpuscular HGB CONC 34.7 g/dL (32.0-36.0); Mean Corpuscular Hemoglobin 32.5 pg (27.0-31.0); Mean Corpuscular Volume 93.7 fL (78.0-98.0); Platelet Count 169 thou/uL (130-400); Red Blood Cell (RBC) Count 3.69 mill/uL (4.70-6.10); White Blood Cell (WBC) Count 6.4 thou/uL (4.8-10.8)
[2019-07-29 12:20] LABS: ALT (SGPT) 8 U/L (8-55); AST (SGOT) 13 U/L (5-34); Albumin 4.1 g/dL (3.4-4.8); Alkaline Phosphatase 73 U/L (40-150); Anion Gap 13 mmol/L (10-20); BUN (Urea Nitrogen) 48 mg/dL (8.4-25.7); Bilirubin, Total 1.2 mg/dL (0.2-1.2); Calc. Creatinine Clearance 0 mL/min (70-130); Carbon Dioxide 36 mmol/L (23-31); Chloride 88 mmol/L (98-107); Estimated GFR-MDRD 31; Globulin 2.1 g/dL (2.4-3.5); Glucose 108 mg/dL (83-110); Lipase 28 U/L (8-78); Potassium 3.3 mmol/L (3.5-5.1); Protein, Total 6.2 g/dL (5.8-8.1); Sodium 134 mmol/L (136-145)
--- NOTE | 2019-07-29 12:29 | RAD ---
FRONTAL RADIOGRAPH CHEST: DATE: 07/29/2019. COMPARISON: 01/10/2019. HISTORY: Chest pain and arm pain. FINDINGS: There is increased linear interstitial density and pulmonary hyperinflation. Heart and mediastinal c ontours are stable. No pneumothorax, pleural fluid, focal consolidation, or alveolar edema. Round p ulmonary nodule noted in the medial right lung base measuring approximately 1.3 cm. This was also se en on a CT using dissection protocol 04/30/2018. A PET CT was recommended at the time of the 04/30/2018 CT angiogram. IMPRESSION: Interstitial prominence of pulmonary hyperinflation suggests chronic obstructive pulmonary disease in the proper clinical setting. No acute findings. Stable nodule noted in right lung base. CODE T POS: OFF
--- NOTE | 2019-07-29 14:23 | PDOC.FPRHP ---
- History of Present Illness Chief Complaint: chest pains History of Present Illness: Mr. Rodas is a pleasant 73yoM who presents for evaluation of chest pain. He describes the pain as sharp and stabby, points to his mid-epigastrium, and that it radiated to his back. It started at 0930 with chills, weakness, facial flushing, chest pain, dyspnea (upper airway). He says his legs felt weak and he had leg cramps. Resting did not relieve the symptoms. Coworkers (at his [employer] shop) said they needed to call EMS. He denies swelling, orthopnea, PND, diaphoresis. He states that the cath in April of 2018 showed LAD stenosis, but that they did not stent it because he had good collateral flow. He has a longstanding history of chest pain. In 2001 he had a gastric ulcer that "ruptured" and had to be cauterized. He complains of frequent episodes of GERD with burning sensation in his throat. ED Course: 1L NS - Allergies/Adverse Reactions Allergies Allergy/AdvReac Type Severity Reaction Status Date / Time No Known Allergies Allergy Verified 03/14/16 12:44 - Home Medications Medication Instructions Recorded Confirmed Type Aspirin [Ecotrin Low Strength] 81 mg PO DAILY #30 tab 12/18/17 07/29/19 Rx Pantoprazole [Protonix] 40 mg PO BID #60 tab 12/18/17 07/29/19 Rx Atorvastatin Calcium 40 mg PO HS 04/30/18 07/29/19 History Isosorbide Mononitrate [Imdur ER] 30 mg PO DAILY #30 tab 05/03/18 07/29/19 Rx Metoprolol Tartrate [Lopressor] 12.5 mg PO BID 01/10/19 07/29/19 History - History PMHx: Dyslipidemia PSHx: Denies any surgeries FHx: Dad ( of [place]) Social: 1p/2.5day, denies ETOH (former alcohol abuse in younger days), denies illicit drugs - Review of Systems General: denies: fever/chills, weight/appetite/sleep changes, night sweats Eyes: denies: eye pain, vision changes ENT: denies: nasal congestion, rhinorrhea Respiratory: reports: shortness of breath. denies: cough, congestion, exercise intolerance Cardiovascular: reports: chest pain. denies: palpitation, edema, paroxysmal nocturnal dyspnea, orthopnea Gastrointestinal: reports: nausea. denies: vomiting, diarrhea, constipation, abdominal pain, GI bleeding Genitourinary: denies: incontinence, dysuria Skin: denies: rashes, lesions, jaundice Musculoskeletal: denies: pain, tenderness, stiffness Neurological: denies: numbness, syncope Psychological: denies: anxiety, depression - Vital signs BP: 133/61 HR: 69 RR: 18 Pox: 100% on TA Wt: 65kg - Physical Exam Constitutional: NAD, awake, alert and oriented HEENT: normocephalic and atraumatic, PERRLA, EOMI, grossly normal vision, grossly normal hearing, MMM Neck: supple, FROM, no bruits Chest: no-tender to palpation Heart: RRR, normal S1/S2, no murmurs/rubs/gallops, pulses present Lungs: CTAB, no respiratory distress, good air movement, no rales/rhonchi, no wheezing Abdomen: soft, bowel sounds present, no masses/distention -Abdomen: TTP in the midepigastrium Musculoskeletal: normal structure, normal tone Neurological: no focal deficit, CN II-XII intact Skin: no rash/lesions, good turgor, capillary refill <2 seconds Heme/Lymphatic: no unusual bruising or bleeding -Heme/Lymphatic: senile purpura Psychiatric: normal mood and affect, good judgment and insight, intact recent and remote memory FMR H&P: Results - Labs Result Diagrams: 07/29/19 11:47 07/29/19 11:47 Lab results: WBC 6.4 thou/uL (4.8-10.8) 07/29/19 11:47 Hgb 12.0 g/dL (14.0-18.0) L 07/29/19 11:47 Hct 34.6 % (42.0-52.0) L 07/29/19 11:47 MCV 93.7 fL (78.0-98.0) 07/29/19 11:47 Plt Count 169 thou/uL (130-400) 07/29/19 11:47 Neutrophils % 75.2 % (42.0-75.0) H 07/29/19 11:47 Sodium 134 mmol/L (136-145) L 07/29/19 11:47 Potassium 3.3 mmol/L (3.5-5.1) L 07/29/19 11:47 Chloride 88 mmol/L (98-107) L 07/29/19 11:47 Carbon Dioxide 36 mmol/L (23-31) H 07/29/19 11:47 BUN 48 mg/dL (8.4-25.7) H 07/29/19 11:47 Creatinine 2.11 mg/dL (0.7-1.3) H 07/29/19 11:47 Glucose 108 mg/dL (83-110) 07/29/19 11:47 Calcium 9.0 mg/dL (7.8-10.44) 07/29/19 11:47 Total Bilirubin 1.2 mg/dL (0.2-1.2) 07/29/19 11:47 AST 13 U/L (5-34) 07/29/19 11:47 ALT 8 U/L (8-55) 07/29/19 11:47 Alkaline Phosphatase 73 U/L (40-150) 07/29/19 11:47 Serum Total Protein 6.2 g/dL (5.8-8.1) 07/29/19 11:47 Albumin 4.1 g/dL (3.4-4.8) 07/29/19 11:47 Lipase 28 U/L (8-78) 07/29/19 11:47 Laboratory Tests 07/29/19 07/29/19 07/29/19 11:47 11:47 11:47 Hemoglobin A1c 5.1 Phosphorus 2.9 Magnesium 2.0 Troponin I Less than 0.010 TSH 3rd Generation 07/29/19 07/29/19 11:47 14:58 Hemoglobin A1c Phosphorus Magnesium Troponin I Less than 0.010 TSH 3rd Generation 1.2409 - EKG Interpretation EKG: Stable changes from last EKG in 2018. Bifascicular block. - Radiology Interpretation Chest x-ray Status: report reviewed by me (Interstitial prominence of pulmonary hyperinflation suggests chronic obstructive pulmonary disease in the proper clinical setting. No acute findings. Stable nodule noted in right lung base.) FMR H&P: A/P - Problem List (1) Chest pain, atypical Current Visit: Yes Status: Acute Code(s): R07.89 - OTHER CHEST PAIN (2) HTN (hypertension) Current Visit: No Status: Acute Code(s): I10 - ESSENTIAL (PRIMARY) HYPERTENSION (3) Leg cramping Current Visit: No Status: Acute Code(s): R25.2 - CRAMP AND SPASM (4) Pulmonary nodule Current Visit: No Status: Acute Code(s): R91.1 - SOLITARY PULMONARY NODULE (5) CAD (coronary artery disease) Current Visit: No Status: Chronic Code(s): I25.10 - ATHSCL HEART DISEASE OF [place] CORONARY ARTERY W/O ANG PCTRS Qualifiers: Coronary Disease-Associated Artery/Lesion type: [place] artery [place] vs. transplanted heart: [place] heart Associated angina: angina presence unspecified Qualified Code(s): I25.10 - Atherosclerotic heart disease of [place] coronary artery without angina pectoris (6) Dyslipidemia Current Visit: No Status: Chronic Code(s): E78.5 - HYPERLIPIDEMIA, UNSPECIFIED (7) Tobacco abuse Current Visit: No Status: Chronic Code(s): Z72.0 - TOBACCO USE - Plan Atypical chest pain Heart score of 6. History of significant LAD stenosis w/ collateral flow. Will admit for monitoring on tele obs. First two troponins are negative. Chest pain seems GI in nature. Will try GI cocktail. Pending risk stratification labs. Will trend troponins and repeat an EKG if chest pain worsens. Cardiology consulted, appreciate recommendations. Pulmonary nodule Present on multiple imaging studies, recommended evaluation with PET scan in 2017. Recommend outpatient follow up. HTN Continue Metoprolol 12.5BID, Isosorbide mononitrate 30mg HLD Continue Atorvastatin 40mg GERD Continue Protonix 40mg Dispo: Stable, tele obs. VTE: Lovenox Code: DNAR FMR H&P: Upper Level - Pertinent history 73 year old male with significant CAD presents with chest pain for which he states starts in epigastric region. He describes a sensation of reflux which has worsened. It started while he was at work (he works as [employer]). He sat down in an attempt to resolve the pain, but the pain persisted. Patient is able to eat and drink without difficulty, but he complains of the reflux sensation, shortly thereafter. Patient had cardiac cath in April 2018 which showed occluded LAD with collaterals. No stents were placed at that time. Patient is not compliant with ASA due to GI symptoms. He endorses dizziness, diaphoresis, and flushing sensation at onset of chest pain today. Patient does of history of perforated ulcer in the past which required intervention. - Pertinent findings General: Alert and oriented. No acute distress. Eating dinner on evaluation. HEENT: MMM. Card: RRR. No appreciable murmur. Resp: CTA, No acute distress Abdomen: Non-tender on my exam, including epigastric region Ext: No edema, pulses present - Plan Date/Time: 07/29/19 1417 I, Carla Arana , have evaluated this patient and agree with findings/plan as outlined by international marketing intern resident. Pertinent changes/additions are listed here. Atypical chest pain - Significant cardiac history w/ heart score of 6 - Cardiac cath in April 2018 showed LAD occlusion with colaterals. No stents placed at that time - Patient not compliant with ASA due to GI symptoms - Symptoms consistent most with GERD; will give GI cocktail and start patient on protonix - Given cardiac history and presenting complaint, Cardiology consulted; appreciate recs - Troponin neg x2, continue to trend - Risk stratification; HgA1c, FLP, TSH, Mg, P - Consider plavix given risk factors and intolerance of ASA GERD w/ history of ulcer perforation - Will consider GI consult - GI cocktail and protonix Anemia - Has not had colonoscopy or other screenings previously - Will order FOBT and iron studies ANALISA - Fluid hydration - Continue to monitor CAD - Cardiac cath April 2018 with LAD occlusion w/ collaterals. No stents at that time. - Not compliant with ASA - Cardiology consulted HTN: - Continue home meds HLD - Continue home meds Pulmonary nodule - Appears stable - CT chest results; recommend follow up with PET scan Weight loss - Patient with significant weight loss - Cachectic appearing - Recommend general cancer screenings - Certified Master Safecracker consult DVT PPX: Lovenox Code status: DNAR Dispo: Obs on telemetry. Anticipate LOS <48 hours.
[2019-07-29] MEDS ORDERED: Acetaminophen 325 MG TAB PO PRN (14:56)
[2019-07-29] MEDS ORDERED: Ondansetron ODT 4 MG TAB PO PRN (14:56)
[2019-07-29 15:21] LABS: Hemoglobin A1c 5.1 % (4.0-6.0)
[2019-07-29 15:33] LABS: Troponin I Less than 0.010 ng/mL (< 0.028)
[2019-07-29 15:36] LABS: Phosphorus 2.9 mg/dL (2.3-4.7)
[2019-07-29] MEDS: Sodium Chloride 0.9% 1,000 ML IV SCH (16:19)
[2019-07-29] MEDS ORDERED: Lidocaine 2% Viscous Solution 20 ML, Aluminum & Magnesium Hydroxide 30 ML, Donnatal Eli... SSW SCH (17:15)
[2019-07-29 18:44] LABS: Troponin I Less than 0.010 ng/mL (< 0.028)
--- NOTE | 2019-07-29 20:40 | CON ---
DATE OF CONSULTATION: HISTORY OF PRESENT ILLNESS: The patient is a 73-year-old gentleman with a history of coronary artery disease, who presents with recurrent chest discomfort. The patient previously underwent a cardiac catheterization in 2006, He was found to have an occluded proximal LAD. The patient had good collateral flow. He underwent a repeat catheterization in 2018, which once again revealed an occluded LAD with collaterals. The patient was in his usual state of health when he developed midsternal chest discomfort, radiated up through his throat. The patient states he was at his [employer] shop when this occurred. He states his chest discomfort has been persistent. He states the patient reports that this discomfort occurs at home whenever he lies down. The discomfort is improved by sitting up. The patient reports feeling mildly dyspneic. PAST MEDICAL HISTORY: 1. Coronary artery disease. 2. Hypertension. 3. GE reflux. PAST SURGICAL HISTORY: None. SOCIAL HISTORY: He smokes 1-1/2 pack per day. ALLERGIES: NO KNOWN DRUG ALLERGIES. MEDICATIONS: 1. Lipitor 40 at bedtime. 2. Imdur 30 q.a.m. 3. Protonix 40 daily. 4. Metoprolol 12.5 b.i.d. REVIEW OF SYSTEMS: Ten-point system otherwise unremarkable. PHYSICAL EXAMINATION: GENERAL: Well-developed gentleman in no acute distress. VITAL SIGNS: Blood pressure 133/61. NECK: No jugular venous distention. LUNGS: Clear to auscultation. HEART: Regular rate and rhythm. Normal S1, S2. ABDOMEN: Nondistended. EXTREMITIES: Showed no edema. VASCULAR: Radial pulses are 2+. LABORATORY RESULTS: Revealed him to have white blood cell count 6.4, hemoglobin 12.0, hematocrit 34.6, platelets 169. Sodium 134, potassium 3.3, chloride 88, bicarbonate 36, BUN 48, creatinine 2.1. Troponin was 0.01. IMAGING STUDIES: EKG revealed normal sinus rhythm with a right bundle-branch block and left anterior fascicular block. IMPRESSION: 1. Chest pain suggestive of gastroesophageal reflux. 2. History of coronary artery disease with an occluded left anterior descending artery. 3. Hypertension. 4. Tobacco abuse. This gentleman presents with atypical chest pain. Would treat the patient with IV Protonix. Consider GI evaluation. The patient has not been compliant with his aspirin due to its GI side effects. We will consider placing the patient on Plavix. We will follow this patient with you through his hospitalization. Job ID: [id number] MTDD
[2019-07-29] MEDS ORDERED: Ondansetron PF 4 MG/2 ML Vial IVP PRN (20:42)
[2019-07-29] MEDS: Atorvastatin Calcium 40 MG TAB PO SCH (21:22)
[2019-07-29] MEDS: Metoprolol Tartrate 25 MG TAB PO SCH (21:22)
[2019-07-29] MEDS: Pantoprazole 40 MG VIAL IVP SCH (22:48)
[2019-07-30] MEDS: Sodium Chloride 0.9% 1,000 ML IV SCH ×3 (02:41→22:16)
--- NOTE | 2019-07-30 06:29 | PDOC.FM ---
- Subjective Subjective: Mr. Rodas is doing well this morning. States that he did not like the GI cocktail and that he vomited shortly after taking it. He had one other episode of emesis overnight. States that he still has the same gnawing, midepigastric pain. He does report some melanic stools on further questioning, which he denied yesterday. He denies hematemesis. - Objective MAR Reviewed: Yes Vital Signs & Weight: Vital Signs (12 hours) Temp Pulse Resp BP Pulse Ox 07/30/19 02:32 98.2 F 59 L 14 98/54 L 97 07/29/19 23:23 98.4 F 69 16 104/55 L 98 07/29/19 19:54 98.7 F 75 14 130/60 99 Weight Weight 64.864 kg I&O: 07/28/19 07/29/19 07/30/19 06:59 06:59 06:59 Intake Total 152 Output Total 300 Balance -148 Result Diagrams: 07/29/19 11:47 07/29/19 11:47 Phys Exam - Physical Examination Constitutional: NAD HEENT: PERRLA, moist MMs, sclera anicteric Neck: no nodes, supple, full ROM Respiratory: no wheezing, no rales, no rhonchi, clear to auscultation bilateral Cardiovascular: RRR, no significant murmur, no rub Gastrointestinal: soft, no distention, positive bowel sounds ttp midepigastrium Musculoskeletal: no edema, pulses present Neurological: non-focal, moves all 4 limbs Psychiatric: normal affect, A&O x 3 Skin: no rash, normal turgor, cap refill <2 seconds Dx/Plan (1) Chest pain, atypical Code(s): R07.89 - OTHER CHEST PAIN Status: Acute (2) HTN (hypertension) Code(s): I10 - ESSENTIAL (PRIMARY) HYPERTENSION Status: Acute (3) Leg cramping Code(s): R25.2 - CRAMP AND SPASM Status: Acute (4) Pulmonary nodule Code(s): R91.1 - SOLITARY PULMONARY NODULE Status: Acute (5) CAD (coronary artery disease) Code(s): I25.10 - ATHSCL HEART DISEASE OF [place] CORONARY ARTERY W/O ANG PCTRS Status: Chronic Qualifiers: Coronary Disease-Associated Artery/Lesion type: [place] artery [place] vs. transplanted heart: [place] heart Associated angina: angina presence unspecified Qualified Code(s): I25.10 - Atherosclerotic heart disease of [place] coronary artery without angina pectoris (6) Dyslipidemia Code(s): E78.5 - HYPERLIPIDEMIA, UNSPECIFIED Status: Chronic (7) Tobacco abuse Code(s): Z72.0 - TOBACCO USE Status: Chronic - Plan Plan: Atypical chest pain Heart score of 6. History of significant LAD stenosis w/ collateral flow. Will admit for monitoring on tele obs. Troponin negative x3. FLP WNL. A1c 5.1%, Mg 2, Phos 2.9, TSH 1.2409. His ASCVD risk is 20% for MACE in 10yrs. Cards recommend GI workup, plavix since he does not tolerate ASA 2/2 GI problems. GERD Continue Protonix 40mg IV BID. H/o perforated ulcer in 2001. Reports gnawing, burning midepigastric pain. H/o cachexia, unintentional weight loss, melanic stools, no prior colonoscopy. GI Consulted, Dr. Luis will see. Pulmonary nodule Present on multiple imaging studies, recommended evaluation with PET scan in 2017. Recommend outpatient follow up. HTN Continue Metoprolol 12.5BID, Isosorbide mononitrate 30mg HLD Continue Atorvastatin 40mg Cachexia BMI 19, unexplained weight loss. Recommend age appropriate cancer screenings to be done outpatient. Mild anemia (Hb 12) Iron studies ordered. Dispo: Stable, tele obs. VTE: Lovenox Code: DNAR
[2019-07-30 06:39] LABS: Cardiac Risk 3.4 (Less than 4.5)
[2019-07-30] MEDS: Metoprolol Tartrate 25 MG TAB PO SCH (08:45)
[2019-07-30] MEDS: Isosorbide Mononitrate (ER) 30 MG TAB PO SCH (08:45)
[2019-07-30] MEDS: Pantoprazole 40 MG VIAL IVP SCH ×2 (08:46→20:15)
[2019-07-30] MEDS: Enoxaparin Sodium 30 MG/0.3 ML SYRINGE SC SCH (08:46)
[2019-07-30] MEDS ORDERED: Aspirin 81 mg Enteric Coated Tablet PO SCH (09:00)
[2019-07-30 11:45] LABS: Iron 63 ug/dL (65-175); Iron Binding Capacity, Total 229 mcg/dL (261-462)
--- NOTE | 2019-07-30 11:58 | HP ---
I have examined the patient. I have discussed the case with Dr. Светлана Roa. HISTORY OF PRESENT ILLNESS: Mr. Rodas is a 73-year-old man with known coronary artery disease. He underwent a cardiac catheterization in 2018, which showed complete occlusion of the LAD and it was elected to treat him medically. He has been having some epigastric and chest pain that sounds atypical for the last day or so. He was seen by the Cardiology Service right after admission and it was elected not to proceed with further cardiac workup as he just had a cath in 2018, and his symptoms were quite atypical, sounding more like GI complaints. He has had no coffee-grounds emesis, but he has had some fairly constant epigastric pain and weight loss over the last several months. PHYSICAL EXAMINATION: VITAL SIGNS: Blood pressure is 130/60, heart rate 70, respirations 18, and room air pulse ox 100%. GENERAL: He is awake, alert, even cheerful. ENT: No erythema or exudate. NECK: Supple. CARDIAC: Heart rhythm, regular. LUNGS: Clear. ABDOMEN: Epigastric tenderness, which is mild without guarding, rebound, or rigidity. NEUROLOGIC: No focal deficits. LABORATORY DATA: CBC; white count is 6400, hemoglobin 12, hematocrit 34.6 with an MCV of 93.7. His troponins are less than 0.01. BMP; sodium 134, potassium 3.3, chloride 88, bicarb 36, BUN 48, creatinine 2.11. PLAN: Admit, consult GI. Begin PPI. Job ID: [id number]
[2019-07-30] MEDS ORDERED: GoLYTELY 4,000 ml Bottle PO SCH (15:30)
[2019-07-30] MEDS: Atorvastatin Calcium 40 MG TAB PO SCH (20:15)
--- NOTE | 2019-07-31 01:23 | CON ---
DATE OF CONSULTATION: 07/30/2019 REASON FOR CONSULTATION: Midepigastric abdominal pain. CONSULTING PROVIDER: Светлана Roa MD HISTORY OF PRESENT ILLNESS: The patient is a 73-year-old male with past medical history of hyperlipidemia, coronary artery disease, hypertension, GERD, and peptic ulcer disease, presenting with complaints of midepigastric abdominal pain. The patient states that he was in the usual state of health until a couple of days ago when he experienced increased substernal/midepigastric abdominal pain, characterized as a pressure-type sensation, would radiate to the periumbilical region, was intermittent, and reached a severity of 9/10 to 10/10. He noticed that the pain would occur primarily after the ingestion of meals, it would occur within 3 to 4 hours, and lasts for approximately 30 to 60 minutes with resolution at that time. The pain was worse with ingestion of greasy foods with no clear alleviating factors. He does take some medications for acid reflux, but could not recall any of these medications. He also endorse taking increased NSAIDs, taking both aspirin and ibuprofen daily for general aches and pains. He also endorse a weight loss of approximately 20 to 25 pounds unintentionally over the last four months. Otherwise, the patient states that he is doing well with no complaints of nausea, vomiting, fevers, chills, hematemesis, melena, hematochezia, dysphagia, odynophagia, diarrhea, or constipation. Of note, the patient's last colonoscopy was approximately 20 years ago with normal findings per patient. Also of note, he does endorse increased symptoms of eructation, acid taste in back of his mouth, and regurgitation on normal daily basis consistent with acid reflux symptoms, but this has only been intermittently, taking his acid reflux medications. REVIEW OF SYSTEMS: A 10-category review of systems was obtained with all responses negative except for the pertinent positives as listed in HPI. PAST MEDICAL HISTORY: As per HPI. PAST SURGICAL HISTORY: Colonoscopy 20 years ago. FAMILY HISTORY: The patient does not recall any known family history with his mother and father passing away at young age. SOCIAL HISTORY: He denies any alcohol or illicit drug use, but smokes approximately 1 to 1-1/2 packs per day. OUTPATIENT MEDICATIONS: Reviewed. ALLERGIES: NO KNOWN DRUG ALLERGIES. PHYSICAL EXAMINATION: VITAL SIGNS: Temperature 98.1, pulse 47, blood pressure 87/50, respiratory rate 20, saturating 98% on room air. GENERAL: The patient is lying in bed, in no acute distress. Alert and oriented x4. HEENT: Normocephalic, atraumatic. NECK: Supple. No JVD or scleral icterus noted. CARDIOVASCULAR: Regular rate and rhythm with no discernible murmurs, gallops, or rubs. RESPIRATORY: Clear to auscultation bilaterally with no discernible wheezes or rales. ABDOMEN: Normoactive bowel sounds. Soft, nondistended. Tenderness to palpation in the midepigastric and periumbilical regions. EXTREMITIES: No cyanosis, clubbing, or edema. LABORATORY DATA: CBC with a white blood cell count of 6.4, hemoglobin 12, hematocrit 34.6, platelets 169. Chemistry with a sodium of 134, potassium 3.3, chloride 88, CO2 of 36, BUN 48, creatinine 2.11, glucose 108, AST 13, ALT 8, alkaline phosphatase 73, total bilirubin 1.2, lipase 28. IMAGING DATA: Chest x-ray obtained on 07/29/2019 showed interstitial prominence of pulmonary hyperinflation suggestive of chronic obstructive pulmonary disease; stable nodule was noted within the right lung base, measuring approximately 1.3 cm. ASSESSMENT AND PLAN: The patient is a 73-year-old male with past medical history of hyperlipidemia, coronary artery disease, hypertension, gastroesophageal reflux disease, and peptic ulcer disease, presenting with complaints of midepigastric abdominal pain and unintentional weight loss. Midepigastric pain: The patient is presenting with a fairly acute onset of midepigastric abdominal pain characterized as a pressure-type sensation and radiating to the periumbilical region with reaching a severity of 9/10 to 10/10. The patient does have a history of acid reflux as well as peptic ulcer disease for which he is supposed to be taking a PPI daily, but it is unclear whether or not he has been compliant with this regimen at this time. He does also endorse the use of increased NSAIDs, taking both aspirin and ibuprofen daily which could contribute to further gastrointestinal irritation and possible formation of ulcers themselves. However, the patient also endorses an unintentional weight loss of approximately 20 to 25 pounds in addition to having a lab showing a mild anemia. When coupled with the midepigastric abdominal pain/periumbilical abdominal pain, it could be indicative of a possible colonic pathology as well, and given the fact that his last colonoscopy was greater than 20 years ago, is concerning for possible GI neoplastic process. Current differential could include esophagitis (more likely), gastritis, peptic ulcer disease, colitis (less likely), constipation, and/or gastrointestinal neoplasm. RECOMMENDATIONS: 1. We would place the patient on a clear liquid diet today in anticipation of procedures tomorrow. 2. We will proceed with both EGD and colonoscopy tomorrow for intraluminal evaluation of the upper GI tract and lower GI tract. 3. We would restart the patient on PPI including pantoprazole b.i.d.. 4. GoLYTELY prep in anticipation for colonoscopy tomorrow. 5. Pain control per primary team. We will continue to follow. Please call with any questions. Job ID: [id number]
--- NOTE | 2019-07-31 05:30 | PDOC.FM ---
- Subjective Subjective: Patient did well overnight. He is tolerating the bowel prep in preparation for and EGD and colonoscopy this morning with Dr. Luis. No new complaints. - Objective MAR Reviewed: Yes Vital Signs & Weight: Vital Signs (12 hours) Temp Pulse Resp BP Pulse Ox 07/31/19 03:00 98.0 F 54 L 16 100/54 L 96 07/30/19 23:38 98.1 F 57 L 15 85/51 L 97 07/30/19 19:30 97.5 F L 53 L 15 108/55 L 100 Weight Weight 64.41 kg I&O: 07/29/19 07/30/19 07/31/19 06:59 06:59 06:59 Intake Total 1672 3214 Output Total 300 Balance 1372 3214 Result Diagrams: 07/29/19 11:47 07/29/19 11:47 Additional Labs: Laboratory Tests 07/30/19 05:27 Triglycerides 67 Cholesterol 156 LDL Cholesterol, Calc 97 HDL Cholesterol 46 Heart Disease Risk Ratio 3.4 Phys Exam - Physical Examination Constitutional: NAD HEENT: PERRLA, moist MMs Neck: supple, full ROM Respiratory: no wheezing, no rales, no rhonchi, clear to auscultation bilateral Cardiovascular: RRR, no significant murmur, no rub Gastrointestinal: soft, no distention, positive bowel sounds TTP in mid epigastrium Musculoskeletal: no edema, pulses present Neurological: non-focal, normal sensation, moves all 4 limbs Psychiatric: normal affect, A&O x 3 Skin: no rash, normal turgor Dx/Plan (1) Chest pain, atypical Code(s): R07.89 - OTHER CHEST PAIN Status: Acute (2) HTN (hypertension) Code(s): I10 - ESSENTIAL (PRIMARY) HYPERTENSION Status: Acute (3) Leg cramping Code(s): R25.2 - CRAMP AND SPASM Status: Acute (4) Pulmonary nodule Code(s): R91.1 - SOLITARY PULMONARY NODULE Status: Acute (5) CAD (coronary artery disease) Code(s): I25.10 - ATHSCL HEART DISEASE OF [place] CORONARY ARTERY W/O ANG PCTRS Status: Chronic Qualifiers: Coronary Disease-Associated Artery/Lesion type: [place] artery [place] vs. transplanted heart: [place] heart Associated angina: angina presence unspecified Qualified Code(s): I25.10 - Atherosclerotic heart disease of [place] coronary artery without angina pectoris (6) Dyslipidemia Code(s): E78.5 - HYPERLIPIDEMIA, UNSPECIFIED Status: Chronic (7) Tobacco abuse Code(s): Z72.0 - TOBACCO USE Status: Chronic - Plan Plan: Atypical chest pain, resolved Heart score of 6. History of significant LAD stenosis w/ collateral flow. Will admit for monitoring on tele obs. Troponin negative x3. FLP WNL. A1c 5.1%, Mg 2, Phos 2.9, TSH 1.2409. His ASCVD risk is 20% for MACE in 10yrs. Cards recommend GI workup, plavix since he does not tolerate ASA 2/2 GI problems. GERD Continue Protonix 40mg IV BID, will resume PO PPI on discharge. H/o perforated ulcer in 2001. Reports gnawing, burning midepigastric pain. H/o daily NSAID use. H/o cachexia, unintentional weight loss, melanic stools, prior colonoscopy >20yrs ago, normal. Plan is for an EGD/Colonoscopy this am. Pulmonary nodule Present on multiple imaging studies, recommended evaluation with PET scan in 2017. Recommend outpatient follow up. HTN Continue Isosorbide mononitrate 30mg. Held: Metoprolol 12.5BID. His pressures were low yesterday. HLD Continue Atorvastatin 40mg Cachexia BMI 19, unexplained weight loss. Recommend age appropriate cancer screenings to be done outpatient. Mild anemia Anemia of chronic disease vs Iron deficient. 07/30/19 07/30/19 11:17 11:17 Iron 63 L TIBC 229 L Ferritin 218.90 Dispo: Stable, tele obs. VTE: Lovenox Code: DNAR
[2019-07-31] MEDS ORDERED: PROPOFOL 200 MG/20 ML VIAL ONE (07:49)
[2019-07-31] MEDS ORDERED: Lidocaine 1% PF 5 ML VIAL ONE (07:49)
[2019-07-31] MEDS: Enoxaparin Sodium 30 MG/0.3 ML SYRINGE SC SCH (08:24)
[2019-07-31] MEDS ORDERED: Ondansetron HCl/PF 4 MG/2 ML Vial IVP PRN (09:50)
[2019-07-31] MEDS ORDERED: Promethazine HCl 25 MG/ML VIAL SLOW IVP PRN (09:50)
[2019-07-31] MEDS ORDERED: Promethazine HCl 25 MG/ML VIAL IM PRN (09:50)
[2019-07-31] MEDS: Isosorbide Mononitrate (ER) 30 MG TAB PO SCH (10:13)
[2019-07-31] MEDS: Pantoprazole 40 MG VIAL IVP SCH (10:13)
[2019-07-31] MEDS: Sodium Chloride 0.9% 1,000 ML IV SCH (10:13)
--- NOTE | 2019-07-31 10:36 | PRG ---
DATE OF SERVICE: 07/31/2019 Mr. Rodas is being taken to endoscopy. His symptoms have improved on the IV Protonix. We will await the results of EGD and colonoscopy to recommend further management. He can likely be discharged after the studies. Job ID: [id number]
--- NOTE | 2019-07-31 10:39 | OP ---
DATE OF PROCEDURE: 07/31/2019 PROCEDURE PERFORMED: Esophagogastroduodenoscopy (diagnostic), colonoscopy with polypectomy and control of hemorrhage. INDICATION FOR PROCEDURES: Mid epigastric/periumbilical abdominal pain, unexplained weight loss. DESCRIPTION OF PROCEDURE: After the risks and benefits of the procedure were explained to the patient including risks of bleeding, infection, perforation, reaction to anesthesia, aspiration and/or pain, informed consent was obtained. The patient was then taken to the endoscopy suite, where deep sedation was administered via propofol and anesthesia support. Once adequate sedation was achieved, the standard gastroscope was introduced into the mouth with intubation of the esophagus, stomach, and the proximal small intestine with the findings listed below. The patient tolerated the procedure well with no immediate perioperative complications. Upon conclusion of the procedure, the bed was rotated 180 degrees in anticipation of the colonoscopy. Once in position, a digital rectal examination was performed followed by introduction of the standard colonoscope, which was then advanced to the cecum without difficulty. The quality of the prep was initially fair with a [id number] amount of retained semi-solid and liquid stool, but was amenable to aggressive irrigation and suctioning and converted to a good prep. This patient tolerated the procedure well with no immediate perioperative complications. Upon conclusion of the procedure, all equipment was removed from the patient, and he was transferred to PACU in satisfactory condition. EGD FINDINGS: Esophagus: Normal-appearing mucosa was seen in both the proximal and mid esophagus; however, three to four linear erosions were seen in the distal esophagus extending proximally from the GE junction. The longest erosion extended from 35 to 40 cm past the incisors. There were no associated ulcerations, mass, lesions, or active/recent bleeding. Stomach: A moderate amount of retained food was seen within the gastric fundus and body, thereby limiting visualization of the gastric mucosa. Of the mucosa seen within the stomach (approximately 70%), normal-appearing mucosa was seen in the gastric cardia, fundus, body, greater curvature, antrum, and incisura. There was no evidence of erosions, ulcerations, mass, lesions, or active/recent bleeding. Duodenum: Normal-appearing mucosa was seen in both the duodenal bulb and second portion of the duodenum. There was no evidence of erosions, ulcerations, mass, lesions, or active/recent bleeding. IMPRESSION: 1. [place] grade B reflux-mediated erosive esophagitis. 2. Moderate amount of retained gastric contents limiting visualization and concerning for possible gastroparesis. COLONOSCOPY FINDINGS: Digital rectal exam: Small external hemorrhoids were seen on external examination along with perianal skin tags. COLON FINDINGS: [id number] amount of retained semi-solid and liquid stool was seen throughout the entire colon, that was amenable to aggressive irrigation and suctioning and converted from a fair prep to a good prep. Normal-appearing mucosa was then seen in the cecum as well as at the appendiceal orifice and ileocecal valve. However, 2 polyps measuring 2.5 cm and 1.5 cm were seen in the proximal ascending colon and completely removed with snare cautery polypectomy. The smaller polyp (1.5 cm) was removed in a piecemeal fashion, whereas the larger polyp was removed en bloc. With the defects made by removal of these polyps, one hemoclip was placed to approximate the mucosal defect generated by the larger polyp and two hemoclips were placed to approximate the mucosal defect from the smaller polyp with good hemostasis achieved and no bleeding noted at the end of the maneuver. Normal-appearing mucosa was then seen in the distal ascending colon. A 3 mm polyp was seen in the proximal transverse colon and completely removed with cold snare polypectomy, it was retrieved and placed in a specimen jar for evaluation. Normal-appearing mucosa was then seen in the distal transverse and descending colons. A 5 to 6 mm polyp was seen in the sigmoid colon and completely removed with snare cautery polypectomy. It was retrieved and placed in a specimen jar for evaluation. Normal-appearing mucosa was then seen within the rectum with internal hemorrhoids seen on rectal retroflexion. IMPRESSION: 1. A 2.5 cm polyp in the proximal ascending colon, status post cold snare polypectomy and hemoclip placement x1. 2. A 1.5 cm ascending colon polyp, status post snare cautery polypectomy and hemoclip placement x2. 3. A 3 mm transverse colon polyp, status post cold snare polypectomy. 4. A 5 to 6 mm sigmoid colon polyp, status post hot snare polypectomy. 5. Internal and external hemorrhoids. 6. No etiology for the patient's abdominal pain was seen during this examination. RECOMMENDATIONS: 1. We will follow up on the polypectomy results, but would recommend a repeat colonoscopy in 1 year given the piecemeal removal of the small or ascending colon polyp. 2. Would recommend a higher fiber diet given the presence of internal and external hemorrhoids. 3. Would continue the patient on pantoprazole, but would decrease to 40 mg daily, 30 to 45 minutes before breakfast and encourage the patient's compliance. Given the patient's pain resolution with PPI administration and the findings seen today, no further inpatient workup is indicated. We will sign off at this time. Please call with any questions. Job ID: [id number]
[2019-07-31 15:19] VITALS: BMI 19.5
[2019-07-31 19:33] VITALS: BP 101/55; TEMP 98.2
--- NOTE | 2019-08-03 08:41 | DIS ---
DATE OF ADMISSION: 07/29/2019 DATE OF DISCHARGE: 07/31/2019 RESIDENT: Светлана Roa MD. CONSULTS: Cardiology, Gastroenterology. PROCEDURES: EGD and colonoscopy. PRIMARY DIAGNOSES: Atypical chest pain. SECONDARY DIAGNOSES: Gastroparesis, pulmonary nodule, hypertension, hyperlipidemia, gastroesophageal reflux disease, esophageal lesion and multiple colonic polyps. DISCHARGE MEDICATIONS: 1. Protonix 40 mg. 2. Imdur 30 mg. 3. Aspirin 81 mg. 4. Atorvastatin 40 mg. DISCONTINUED MEDICATIONS: Metoprolol. HISTORY OF PRESENT ILLNESS/HOSPITAL COURSE: Mr. Rodas presented to the ED for complaints of chest pain which he described as sharp and stabbing in midepigastrium radiating to his back. It occurred acutely at 9:30 a.m. on the day of admission with chills, weakness, facial flushing, chest pain, dyspnea, and overall malaise. He sat down and symptoms did not relieve, so he called EMS. He had a cath in April 2018, which showed significant LAD stenosis with good collateral flow. He has a longstanding history of gastrointestinal pain with a gastric ulcer that ruptured in 2001 which had to be cauterized. He has unexplained weight loss and frequently vomits after eating. His EKG was stable and his chest x-ray showed no acute findings, an incidental stable lung nodule was seen in right lung base. Labs show normocytic anemia, and he is noted to be iron deficient. His fasting lipid profile showed triglycerides 67, cholesterol 156, LDL was 97, HDL 46. TSH 1.24. His troponins were negative. He had findings of retained food in the stomach during the EGD concerning for gastroparesis. DISPOSITION: Stable. DISCHARGE INSTRUCTIONS: 1. Location: Home. 2. Diet: Regular. 3. Activity: Ad emelia. 4. Followup: Follow up with primary care physician within 2 weeks. Job ID: [id number] [facility]
== END 2019-07-31 19:54 | disposition home or self-care (01) ==
LOC: ERS 11:22 → 2SW 15:56
PROVIDERS: ADMIT Family Medicine; ATTEND Family Medicine
PROC: 0DJ08ZZ Inspection of Upper Intestinal Tract, Via Natural or Artificial Opening Endoscopic (ICD-10-PCS; principal; 2019-07-31)
PROC: 0DBK8ZX Excision of Ascending Colon, Via Natural or Artificial Opening Endoscopic, Diagnostic (ICD-10-PCS; 2019-07-31)
PROC: 0DBL8ZX Excision of Transverse Colon, Via Natural or Artificial Opening Endoscopic, Diagnostic (ICD-10-PCS; 2019-07-31)
PROC: 0DBN8ZX Excision of Sigmoid Colon, Via Natural or Artificial Opening Endoscopic, Diagnostic (ICD-10-PCS; 2019-07-31)
DX: D12.2 Benign neoplasm of ascending colon (principal); D12.3 Benign neoplasm of transverse colon; D12.5 Benign neoplasm of sigmoid colon; K64.4 Residual hemorrhoidal skin tags; K64.8 Other hemorrhoids; R07.89 Other chest pain; K21.0 Gastro-esophageal reflux disease with esophagitis; K22.10 Ulcer of esophagus without bleeding; I25.10 Atherosclerotic heart disease of native coronary artery without angina pectoris; E78.5 Hyperlipidemia, unspecified; F10.11 Alcohol abuse, in remission; F17.210 Nicotine dependence, cigarettes, uncomplicated; K31.84 Gastroparesis; R25.2 Cramp and spasm; R91.1 Solitary pulmonary nodule; D64.9 Anemia, unspecified; N17.9 Acute kidney failure, unspecified; R63.4 Abnormal weight loss; Z68.1 Body mass index [BMI] 19.9 or less, adult; Z79.899 Other long term (current) drug therapy; Z66 Do not resuscitate
CPT/HCPCS: 43235; 45385; 71045; 80061; 82274; 82728; 83036; 83540; 83550; 83690; 83735; 84100; 84484 ×2; 88305; 93005; 94760; 96361 ×4; 96375; 96376 ×2; 99285; G0378 ×4; 36415; 80053; 84443; 85025; 96360; C9113; J1650; J2001; J2405; J2704